=== PATIENT | male | born 1955 | race Caucasian/White ===

== ENCOUNTER 2021-04-29 17:03 | Observation (INO) | payer OTHER, SELFPAY ==
--- NOTE | ~2021-04-29 | CT_ITS ---
EXAMINATION: CT elbow RT w con DATE: 04/30/2021 11:11 INDICATION: Bursitis and cellulitis at the right elbow. TECHNIQUE: High resolution computed tomography (CT) of the right elbow was performed with 100 mL Omni paque-350 intravenous contrast. Additional sagittal and coronal reconstructions were performed. Autom ated exposure control and iterative reconstruction technique were employed. The dose-length product w as 63.20 mGy-cm. COMPARISON: Right elbow radiographs dated 04/29/2021 FINDINGS: Bone alignment is normal. No fracture. Mild osteoarthritis at the right elbow. No elbow joint effusio n. Small enthesophytes at the tip the olecranon and at the humeral medial epicondyle. No cortical ero sions or periosteal reaction to suggest osteomyelitis. There is prominent subcutaneous edema about th e posterior aspect of the distal upper arm, elbow and extending into the forearm consistent with give n history of cellulitis. This is most severe dorsal to the olecranon where there is loss of the fat a ttenuation. Could not exclude a possible small bursal fluid collection at this location although no c learly defined peripheral enhancing synovial margin is appreciated. No soft tissue gas, radiopaque fo reign bodies or other organized fluid collections to suggest abscess. IMPRESSION: 1. Soft tissue swelling and edema consistent with given history of cellulitis posterior to the distal upper arm, elbow and extending into the forearm. No definitive bursal fluid collection. Reviewed, dictated and finalized at location A. IMPRESSION: 1. Soft tissue swelling and edema consistent with given history of cellulitis p osterior to the distal upper arm, elbow and extending into the forearm. No defi nitive bursal fluid collection.
--- NOTE | ~2021-04-29 | XR_ITS ---
XR elbow RT min 3V DATE: 04/29/2021 21:51 INDICATION: Posterior elbow swelling, redness, pain for 2 weeks TECHNIQUE: 4 views COMPARISON: None FINDINGS: There is dorsal soft tissue swelling which may be due to olecranon bursitis. There is a pro minent dorsal olecranon process spur. There is osteoarthritic spurring at the elbow joint. No fracture or dislocation or joint effusion. No periosteal reaction or bone destruction. 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
--- NOTE | ~2021-04-29 | US_ITS ---
EXAMINATION: US venous doppler UE RT DATE: 04/30/2021 09:22 INDICATION: Right upper extremity swelling TECHNIQUE: Grayscale ultrasound images without and with compression and Doppler ultrasound images of the right upper extremity veins were obtained. COMPARISON: None. FINDINGS: The right internal jugular vein, subclavian vein, axillary vein, brachial veins, basilic vein, cephal ic vein, radial vein, and ulnar vein are patent. IMPRESSION: 1. No evidence of deep venous thrombosis. Reviewed, dictated and finalized at location A.
[2021-04-29 17:40] VITALS: BP 128/70; PULSE 92; RESP 20; TEMP 36.1; O2SAT 95
[2021-04-29 21:29] VITALS: BP 130/85; PULSE 90; RESP 17; O2SAT 97
[2021-04-29 22:01] LABS: Basophils Absolute Auto 0.1 K/mm3 (0.0-0.1); Basophils Percent Auto 0.6 % (0.2-1.2); Eosinophils Absolute Auto 0.2 K/mm3 (0-0.3); Eosinophils Percent Auto 1.2 % (0-4.4); Hematocrit 46.6 % (42.0-52.0); Hemoglobin 14.7 g/dL (14.0-18.0); Immature Granulocyte Absolute 0.04 K/mm3 (0.00-0.031); Immature Granulocyte Percent A 0.3 % (0-0.5); Lymphocytes Absolute Auto 1.86 K/mm3 (0.9-3.2); Lymphocytes Percent Auto 15.1 % (18.3-44.2); Mean Corpuscular HGB Conc 31.5 g/dl (32-36); Mean Corpuscular Hemoglobin 29.3 pg (26-34); Mean Platelet Volume 10.5 fl (7.4-10.4); Monocytes Absolute Auto 1.4 K/mm3 (0.1-0.6); Monocytes Percent Auto 11.1 % (2.6-8.5); Neutrophils Absolute Auto 8.8 K/mm3 (1.3-6.7); Neutrophils Percent Auto 71.7 % (45.5-73.1); Platelet Count Result 206 k/mm3 (150-375); Red Blood Count 5.01 M/mm3 (4.6-6.20); Red Cell Distribution Width 14.2 % (11.5-14.5); White Blood Count 12.3 K/mm3 (4.5-10.0)
[2021-04-29 22:12] LABS: Partial Thromboplastin Time 28.4 SECONDS (22.3-36.8)
[2021-04-29 22:13] LABS: Lactic Acid Reflex 0.7 mmol/L (0.7-2.1)
[2021-04-29 22:14] LABS: D Dimer 1.03 ug/mL (<0.48); Uric Acid 4.3 mg/dL (3.5-8.5)
[2021-04-29 22:18] LABS: Alanine Aminotransferase 20 U/L (4-50); Alkaline Phosphatase 104 U/L (38-126); Anion Gap 7 mmol/L (8-16); Aspartate Amino Transferase 17 U/L (17-59); Bilirubin,Total 0.9 mg/dL (0.2-1.3); Blood Urea Nitrogen 12 mg/dL (9-20); Carbon Dioxide 29 mmol/L (22-30); Chloride 102 mmol/L (98-107); Estimated CRCL calculation 88 ml/min; Estimated Glomerular Filt Rate > 60; Glucose 159 mg/dL (65-110); Potassium 3.9 mmol/L (3.4-5.0); Sodium 138 mmol/L (137-145)
[2021-04-29 22:34] LABS: CRP 18.6 mg/dL (<1.0)
--- NOTE | 2021-04-29 23:13 | ED.UPPEXIN ---
HPI - Extremity Injury (Upper) General Chief Complaint: Extremity Injury, Upper Stated Complaint: arm swelling, pain Time Seen by Provider: 04/29/21 21:45 Source: patient Mode of arrival: ambulatory Limitations: no limitations History of Present Illness HPI narrative: 65-year-old male History of hypertension and a stent Here with pain and swelling of his right arm He had a little bit of soreness initially around the elbow and then a rapidly progressing swelling involving the forearm and the distal upper arm There is no injury history No fever, no numbness or weakness and no restriction in his range of motion Related Data Home Medications Medication Instructions Recorded Confirmed albuterol sulfate 90 mcg/actuation 1 puff INHALATION Q4H PRN 04/14/21 04/16/21 aerosol inhaler amlodipine 5 mg tablet 5 mg PO DAILY 04/14/21 04/16/21 aspirin 81 mg tablet,delayed 81 mg PO DAILY 04/14/21 04/16/21 release carvedilol 25 mg tablet 25 mg PO Q12H 04/14/21 04/16/21 ezetimibe 10 mg tablet 10 mg PO DAILY 04/14/21 04/16/21 furosemide 40 mg tablet 40 mg PO QAM 04/14/21 04/16/21 lisinopril 40 mg tablet 40 mg PO DAILY 04/14/21 04/16/21 varenicline 0.5 mg tablet 0.5 mg PO DAILY 04/14/21 04/16/21 Allergies Allergy/AdvReac Type Severity Reaction Status Date / Time No Known Allergies Allergy Verified 04/29/21 21:31 Review of Systems Review of Systems: All systems reviewed & are unremarkable except as noted in HPI and below Constitutional: Constitutional: Reports no additional constitutional complaints, Denies chills, Denies fever(s) and Denies headache(s) Eyes: Eyes: Reports no additional eye complaints and Denies change in vision ENT: Denies headache(s) and Denies sore throat Cardiovascular: Cardiovascular: Denies chest pain and Denies dyspnea Respiratory: Respiratory: Denies cough and Denies dyspnea Gastrointestinal: Gastrointestinal: Denies abdominal pain, Denies diarrhea and Denies vomiting Genitourinary: Genitourinary: Denies dysuria and Denies urinary frequency Musculoskeletal: Musculoskeletal: Denies deformity, Reports arthralgias, Reports joint swelling, Reports muscle cramps and Denies numbness Integumentary/Breasts: Skin/Breast: Denies rash and Denies wounds Neurologic: Denies headache(s), Denies focal weakness, Denies numbness and Denies weakness Psychiatric: Psychiatric: Reports no additional psychiatric complaints Endocrine: Endocrine: Reports no additional endocrine complaints Hematologic/Lymphatic: Hematologic/Lymphatic: Reports no additional hematologic/lymphatic complaints Allergic/Immunologic: Allergic/Immunologic: Reports no additional allergic/immunologic complaints [facility] Past Medical History Medical History COPD (chronic obstructive pulmonary disease) Heart attack Heart disease Family History Family History Mother Diabetes mellitus Cancer Grandparent Diabetes mellitus Social History Social History Smoking packs per day: 0.75 Smoking cigarettes per day: 15.0 Years smoked: 55 Smoking pack-years: 41.25 Smoking status: Current every day smoker Alcohol intake: current Substance use: unknown Exam Const: General: cooperative, no acute distress and alert Orientation/consciousness: patient oriented x3 (alert) HENMT: Head: normal to inspection, normocephalic and atraumatic Ears: external ears normal General nose exam: no epistaxis Eyes: Conjunctivae: conjunctivae normal EOM: EOMs intact bilaterally Neck: Neck: normal visual inspection, supple and no JVD Resp: Effort & Inspection: normal respiratory effort and not labored Auscultation: clear to auscultation bilaterally and other (BS =) Cardio: Rate: regular rate Rhythm: regular rhythm Heart sounds: no murmurs GI: GI Palp: Yes Soft to palpation and
[2021-04-30] MEDS: LACTATED RINGERS 1,000 ML 75 ML IV CONT (00:36)
[2021-04-30] MEDS: ENOXAPARIN 120 MG/0.8 ML SYRINGE SUB-Q (00:37)
[2021-04-30 00:39] VITALS: BP 137/83; PULSE 88; RESP 20; O2SAT 96
[2021-04-30 02:00] VITALS: BP 168/77; PULSE 94; RESP 20; TEMP 36.3; O2SAT 95; BMI 42.4
--- NOTE | 2021-04-30 02:20 | PC.NURSE ---
This patient, Mil Card, was admitted to 3 [facility] Surg Room 307-02. Patient/family oriented to hospital policies and general routines including ID bracelet, bed and alarms, visiting hours, pain management, procedures, bathroom and other care routines, personal items, smoking policy, room service/diet, and visiting hours. Information on how to activate the Rapid Response Team has been discussed. Patient/Family are encouraged to report perceived risks to care and to ask questions if they do not understand what they are told or what they should do.
--- NOTE | 2021-04-30 03:38 | PC.NURSE ---
This admission was documented under the wrong nurse. Daryn Baez RN admitted this patient.
[2021-04-30] MEDS: EZETIMIBE 10 MG TABLET PO (10:10)
[2021-04-30] MEDS: ASPIRIN 81 MG ENTERIC TABLET PO (10:11)
[2021-04-30] MEDS: lisinopriL 20 MG TABLET 40 MG PO (10:11)
--- NOTE | 2021-04-30 12:39 | PM.IMHP ---
H&P: HPI History of Present Illness Date/Time: 04/30/21 12:39 patient is a 65-year-old male history of hypertension and morbid obesity presented emergency department complaint pain redness and swelling along right elbow, patient states he has callus on his right elbow for long- time, patient denies any trauma or injury to the elbow, patient has a cellulitis with an abscess, there is no open sore or drainage, we have started the patient cefazolin and vancomycin, blood culture is collected, we have consulted Orthopedic for further evaluation and recommendation. Chief Complaint: right elbow pain Review of Systems Review of Systems: All systems reviewed & are unremarkable except as noted in HPI and below PMFSH Past Medical History Medical History (Updated 04/30/21 @ 12:49 by Dominique Sylvester MD) COPD (chronic obstructive pulmonary disease) Heart attack Heart disease Family History Family History Mother Diabetes mellitus Cancer Grandparent Diabetes mellitus Social History Social History Smoking packs per day: 0.75 Smoking cigarettes per day: 15.0 Years smoked: 55 Smoking pack-years: 41.25 Smoking status: Current every day smoker Tobacco type: cigarettes Second hand tobacco smoke exposure: Yes Alcohol intake: current Drinks per week: 3 Substance use: never Substance use type: does not use Last use: drinks 3 large rashaun and coke on the weekends Spiritual care concerns: No Meds Home Medications and Allergies Home Medications Medication Instructions Recorded Confirmed Type albuterol sulfate 90 mcg/actuation 1 puff INHALATION Q4H PRN 04/14/21 04/30/21 History aerosol inhaler amlodipine 5 mg tablet 5 mg PO DAILY 04/14/21 04/30/21 History aspirin 81 mg tablet,delayed 81 mg PO DAILY 04/14/21 04/30/21 History release carvedilol 25 mg tablet 25 mg PO BID 04/14/21 04/30/21 History ezetimibe 10 mg tablet 10 mg PO DAILY 04/14/21 04/30/21 History lisinopril 40 mg tablet 40 mg PO DAILY 04/14/21 04/30/21 History Allergies Allergy/AdvReac Type Severity Reaction Status Date / Time No Known Allergies Allergy Verified 04/29/21 21:31 Vital Signs Vital Signs - 24 hr 04/29/21 17:40 04/29/21 21:29 04/30/21 00:39 Temperature 97 F L Pulse Rate 92 90 88 Respiratory Rate 20 17 20 Blood Pressure 128/70 130/85 137/83 Pulse Oximetry 95 97 96 04/30/21 02:00 Temperature 97.4 F L Pulse Rate 94 Respiratory Rate 20 Blood Pressure 168/77 H Pulse Oximetry 95 Exam Narrative: morbidly obese Patient is comfortable, NAD HEENT: eyes are clear and none icteric LUNGS:CTA HEART: RR S1S2 ABD: BS+, Soft and nontender Right Elbow posterior aspect erythematous induration, there is no open sore or any drainage, able to flex, extend, supinate and pronate. Lower extremities: no edema SKIN: nonjaundiced Neuro: grossly intact. H&P: Results Labs Labs: Short CBC 04/29/21 Range/Units 21:52 WBC 12.3 H (4.5-10.0) K/mm3 Hgb 14.7 (14.0-18.0) g/dL Hct 46.6 (42.0-52.0) % Plt Count 206 (150-375) k/mm3 BMP 04/29/21 21:52 Sodium 138 Potassium 3.9 Chloride 102 Carbon Dioxide 29 BUN 12 Creatinine 0.90 Glucose 159 H Calcium 10.0 Liver Function 04/29/21 Range/Units 21:52 Total Bilirubin 0.9 (0.2-1.3) mg/dL AST 17 (17-59) U/L ALT 20 (4-50) U/L Alkaline Phosphatase 104 (38-126) U/L Albumin 4.0 (3.5-5.1) g/dL Assessment and Plan Assessment and plan (1) Cellulitis of arm, right: Code(s): L03.113 - Cellulitis of right upper limb Status: Acute Assessment and Plan: 04/30/21 12:39 patient is a 65-year-old male history of hypertension and morbid obesity presented emergency department complaint pain redness and swelling along right elbow, patient states he has callus on his right elbow for long- time, aldo
--- NOTE | 2021-04-30 13:16 | PC.NURSE ---
patient to ultrasound 0900, returned to room at 0925
--- NOTE | 2021-04-30 13:17 | PC.NURSE ---
patient to CT at 1052
[2021-04-30 14:00] VITALS: BP 143/75; PULSE 80; RESP 16; TEMP 36.8; O2SAT 96
--- NOTE | 2021-04-30 15:27 | PM.CNOR ---
Assessment and Plan Assessment and plan (1) Olecranon bursitis: Qualifiers: Laterality: right Qualified Code(s): M70.21 - Olecranon bursitis, right elbow Code(s): M70.20 - Olecranon bursitis, unspecified elbow Status: Acute (2) Cellulitis of arm, right: Code(s): L03.113 - Cellulitis of right upper limb Status: Acute Assessment and Plan: 65-year-old male with cellulitis right elbow secondary to olecranon bursitis. CT shows no olecranon bursal fluid collection so this is thickening of the olecranon bursal tissue. He does have bilateral knee replacements so will likely need about four weeks of oral antibiotics upon discharge. Something broad-spectrum that will cover MRSA would be appropriate. If need be, I can follow-up in the office with him. Thank you for the consultation. History of Present Illness HPI Consult date: 04/30/21 Consult reason: other (Cellulitis) Chief complaint: Cellulitis right upper extremity Narrative: 65-year-old right-handed male developed some swelling and redness right upper extremity over the past couple of days. He was admitted and started on IV antibiotics for elbow cellulitis. Concern is whether not this is an abscess which would be a surgical issue. Since starting the IV antibiotics, he has improved dramatically. No problems like this in the past. Review of Systems Constitutional: Constitutional: Denies chills and Denies fever(s) FORMERLY [facility], [facility] Past Medical History Medical History (Updated 04/30/21 @ 15:35 by Bon Tam MD) COPD (chronic obstructive pulmonary disease) Heart attack Heart disease Olecranon bursitis Psoriasis Surgical History Surgical History (Updated 04/30/21 @ 15:30 by Bon Tam MD) History of total bilateral knee replacement Dr. Ray Family History Family History Mother Diabetes mellitus Cancer Grandparent Diabetes mellitus Social History Social History Smoking packs per day: 0.75 Smoking cigarettes per day: 15.0 Years smoked: 55 Smoking pack-years: 41.25 Smoking status: Current every day smoker Tobacco type: cigarettes Second hand tobacco smoke exposure: Yes Alcohol intake: current Drinks per week: 3 Substance use: never Substance use type: does not use Last use: drinks 3 large rashaun and coke on the weekends Spiritual care concerns: No Meds Home Medications and Allergies Home Medications Medication Instructions Recorded Confirmed Type albuterol sulfate 90 mcg/actuation 1 puff INHALATION Q4H PRN 04/14/21 04/30/21 History aerosol inhaler amlodipine 5 mg tablet 5 mg PO DAILY 04/14/21 04/30/21 History aspirin 81 mg tablet,delayed 81 mg PO DAILY 04/14/21 04/30/21 History release carvedilol 25 mg tablet 25 mg PO BID 04/14/21 04/30/21 History ezetimibe 10 mg tablet 10 mg PO DAILY 04/14/21 04/30/21 History lisinopril 40 mg tablet 40 mg PO DAILY 04/14/21 04/30/21 History Allergies Allergy/AdvReac Type Severity Reaction Status Date / Time No Known Allergies Allergy Verified 04/29/21 21:31 Vital Signs Vital Signs - 24 hr 04/29/21 17:40 04/29/21 21:29 04/30/21 00:39 Temperature 97 F L Pulse Rate 92 90 88 Respiratory Rate 20 17 20 Blood Pressure 128/70 130/85 137/83 Pulse Oximetry 95 97 96 04/30/21 02:00 04/30/21 14:00 Temperature 97.4 F L 98.3 F Pulse Rate 94 80 Respiratory Rate 20 16 Blood Pressure 168/77 H 143/75 H Pulse Oximetry 95 96 Exam Const: General: cooperative, no acute distress and alert Nutritional Appearance: other Orientation/consciousness: patient oriented x3 Limitations: no limitations Resp: Effort & Inspection: normal respiratory effort and able to speak in complete sentences Skin: General skin exam: normal color Rashes: no rashes Other: Psoriatic plaques both elbows Neuro: General: patient oriented x3 Cognition (N
--- NOTE | 2021-04-30 16:27 | PM.DS ---
DS: Admitting Diagnosis Discharge Date 04/30/2021 Admitting Diagnosis Chief Complaint: right elbow pain DS: Discharge Diagnosis Discharge Diagnosis (1) Cellulitis of arm, right: Code(s): L03.113 - Cellulitis of right upper limb Status: Acute Assessment and Plan: 04/30/21 12:39 patient is a 65-year-old male history of hypertension and morbid obesity presented emergency department complaint pain redness and swelling along right elbow, patient states he has callus on his right elbow for long- time, patient denies any trauma or injury to the elbow, patient has a cellulitis with an abscess, there is no open sore or drainage, we have started the patient cefazolin, and vancomycin, blood culture is collected, we have consulted Orthopedic for further evaluation and recommendation. (2) Tobacco use: Code(s): Z72.0 - Tobacco use Status: Acute Assessment and Plan: Patient Is encouraged to stop smoking (3) COPD (chronic obstructive pulmonary disease): Code(s): J44.9 - Chronic obstructive pulmonary disease, unspecified Status: Inactive Assessment and Plan: patient remains clinically stable no complaints of cough or wheezing (4) Accelerated essential hypertension: Code(s): I10 - Essential (primary) hypertension Status: Acute Assessment and Plan: will continue home regimen and monitor. DS: Summary Hospital Course Reason for hospitalization: patient is a 65-year-old male history of hypertension and morbid obesity presented emergency department complaint pain redness and swelling along right elbow, patient states he has callus on his right elbow for long- time, patient denies any trauma or injury to the elbow, patient has a cellulitis with an abscess, there is no open sore or drainage, we have started the patient cefazolin and vancomycin, blood culture is collected, we have consulted Orthopedic for further evaluation and recommendation. Chief Complaint: right elbow pain Hospital Course: 04/30/21 12:39 patient is a 65-year-old male history of hypertension and morbid obesity presented emergency department complaint pain redness and swelling along right elbow, patient states he has callus on his right elbow for long- time, patient denies any trauma or injury to the elbow, patient has a cellulitis with an abscess, there is no open sore or drainage, we have started the patient cefazolin, and vancomycin, blood culture is collected, we have consulted Orthopedic for further evaluation and recommendation. patient was seen by orthopedic surgeon, patient does not need any surgical intervention recommended or antibiotics, will start the patient on doxycycline and cephalexin patient will follow-up with orthopedic surgeon and primary care, Time Spent with Patient Time attestation: Total time spent providing and/or coordinating discharge services: Exam Narrative: morbidly obese Patient is comfortable, NAD HEENT: eyes are clear and none icteric LUNGS:CTA HEART: RR S1S2 ABD: BS+, Soft and nontender Right Elbow posterior aspect erythematous induration, there is no open sore or any drainage, able to flex, extend, supinate and pronate. Lower extremities: no edema SKIN: nonjaundiced Neuro: grossly intact. DS: Data Data Completed and Pending Labs on day of discharge: Labs from last 24 hours 04/29/21 04/29/21 04/29/21 21:52 21:52 21:52 WBC RBC Hgb Hct MCV MCH MCHC RDW Plt Count MPV Immature Gran % (Auto) Neut % (Auto) Lymph % (Auto) Casey % (Auto) Eos % (Auto) Baso % (Auto) Lymph # (Auto) Casey # (Auto) Eos # (Auto) Baso # (Auto) Abs Immat Gran (auto) Absolute Neuts (auto) Absolute Nucleated RBC Nucleated RBC % PT INR APTT D-Dimer Sodium 138 Potassium 3.9 Chloride 102 Carbon Dioxide 29 Anion Gap 7 L BUN 12 Creatinine 0.90 Estim Creat Willie
== END 2021-04-30 17:10 | disposition home or self-care (01) ==
LOC: ANHED 04-30 00:12 → ANH3MEDSUR 04-30 05:53
PROVIDERS: Emergency Medicine; Admitting Provider Internal Medicine; Emergency Provider Emergency Medicine; PCP Physician Assistant; Visit Provider Family Medicine
DX: L03.113 Cellulitis of right upper limb (principal); M70.21 Olecranon bursitis, right elbow; I10 Essential (primary) hypertension; J44.9 Chronic obstructive pulmonary disease, unspecified; E66.01 Morbid (severe) obesity due to excess calories; F17.210 Nicotine dependence, cigarettes, uncomplicated; Z68.41 Body mass index [BMI] 40.0-44.9, adult; Z96.653 Presence of artificial knee joint, bilateral; M79.89 Other specified soft tissue disorders
CPT/HCPCS: 36415; 73080; 73201; 80053; 83605; 84550; 85025; 85380; 85610; 85730; 86140; 87040; 93971; 96361; 96365; 96366; 96367; 96372; 99285; A9270; G0378; J0690; J1650; J3370; J7120; Q9967

== ENCOUNTER 2021-10-07 09:04 | Outpatient (CLI) | payer MEDICARE, SELFPAY ==
[2021-10-07 09:52] LABS: Basophils Absolute Auto 0.1 K/mm3 (0.0-0.1); Basophils Percent Auto 1.1 % (0.2-1.2); Eosinophils Absolute Auto 0.3 K/mm3 (0-0.3); Eosinophils Percent Auto 4.3 % (0-4.4); Hematocrit 49.1 % (42.0-52.0); Hemoglobin 15.4 g/dL (14.0-18.0); Immature Granulocyte Absolute 0.03 K/mm3 (0.00-0.031); Immature Granulocyte Percent A 0.4 % (0-0.5); Lymphocytes Absolute Auto 1.45 K/mm3 (0.9-3.2); Lymphocytes Percent Auto 19.3 % (18.3-44.2); Mean Corpuscular HGB Conc 31.4 g/dl (32-36); Mean Corpuscular Hemoglobin 28.3 pg (26-34); Mean Corpuscular Volume 90.1 fl (80-100); Mean Platelet Volume 10.2 fl (7.4-10.4); Monocytes Absolute Auto 0.7 K/mm3 (0.1-0.6); Monocytes Percent Auto 9.3 % (2.6-8.5); Neutrophils Absolute Auto 4.9 K/mm3 (1.3-6.7); Neutrophils Percent Auto 65.6 % (45.5-73.1); Platelet Count Result 184 k/mm3 (150-375); Red Blood Count 5.45 M/mm3 (4.6-6.20); Red Cell Distribution Width 14.6 % (11.5-14.5); White Blood Count 7.5 K/mm3 (4.5-10.0)
[2021-10-07 09:59] LABS: Alanine Aminotransferase 27 U/L (4-50); Albumin Level 3.9 g/dL (3.5-5.1); Alkaline Phosphatase 95 U/L (38-126); Anion Gap 4 mmol/L (8-16); Aspartate Amino Transferase 21 U/L (17-59); Bilirubin,Total 0.5 mg/dL (0.2-1.3); Blood Urea Nitrogen 14 mg/dL (9-20); Calcium 9.5 mg/dL (8.4-10.2); Carbon Dioxide 33 mmol/L (22-30); Chloride 102 mmol/L (98-107); Cholesterol 159 mg/dL (0-200); Estimated Glomerular Filt Rate > 60; Glucose 194 mg/dL (65-110); HDL Direct 41 mg/dL; Potassium 4.8 mmol/L (3.4-5.0); Sodium 139 mmol/L (137-145); Triglycerides 140 mg/dL (<150)
[2021-10-07 10:09] LABS: LDL Cholesterol Direct 100 mg/dL
[2021-10-07 13:48] LABS: Prostate Specific Antigen 0.8 ng/mL (< OR = 4.0)
[2021-10-07 14:27] LABS: Folic Acid 9.4 ng/mL (2.76->20)
[2021-10-08 13:27] LABS: Hemoglobin A1C 8.1 % (<5.7)
[2021-10-09 13:04] LABS: Alpha-1-Antitrypsin, QN 150 mg/dL (83-199)
[2021-10-09 15:36] LABS: NIL 0.03 IU/mL; Quantiferon TB Plus, 1T NEGATIVE (NEGATIVE); TB1-NIL <0.00 IU/mL; TB2-NIL <0.00 IU/mL
[2021-10-10 16:53] LABS: Immunoglobulin G, Serum 887 mg/dL (600-1540); Immunoglobulin G1 505 mg/dL (382-929); Immunoglobulin G2 264 mg/dL (241-700); Immunoglobulin G3 78 mg/dL (22-178); Immunoglobulin G4 24.9 mg/dL (4.0-86.0)
== END 2021-10-07 09:05 | disposition home or self-care (01) ==
PROVIDERS: PCP Internal Medicine; Referring Provider Nurse Practitioner; Visit Provider Physician Assistant
DX: E78.5 Hyperlipidemia, unspecified (principal); E11.9 Type 2 diabetes mellitus without complications; J44.9 Chronic obstructive pulmonary disease, unspecified; R53.83 Other fatigue; Z12.5 Encounter for screening for malignant neoplasm of prostate; R06.09 Other forms of dyspnea
CPT/HCPCS: 36415; 80053; 80061; 82103; 82104; 82607; 82746; 82784; 82785; 82787; 83036; 84153; 84443; 85025; 86003; 86480; G0103

== ENCOUNTER 2022-01-06 09:54 | Outpatient (CLI) | payer MEDICARE, SELFPAY ==
[2022-01-06 11:25] LABS: Hemoglobin A1C 6.5 % (<5.7)
[2022-01-06 11:40] LABS: Alanine Aminotransferase 15 U/L (6-50); Albumin Level 4.1 g/dL (3.5-5.1); Alkaline Phosphatase 86 U/L (38-126); Anion Gap 4 mmol/L (8-16); Aspartate Amino Transferase 18 U/L (17-59); Bilirubin,Total 0.6 mg/dL (0.2-1.3); Blood Urea Nitrogen 11 mg/dL (9-20); Calcium 9.2 mg/dL (8.4-10.2); Carbon Dioxide 29 mmol/L (22-30); Chloride 105 mmol/L (98-107); Estimated Glomerular Filt Rate > 60; Glucose 129 mg/dL (65-110); Potassium 3.9 mmol/L (3.4-5.0); Sodium 138 mmol/L (137-145)
== END 2022-01-06 09:55 | disposition home or self-care (01) ==
LOC: ANHLAB 09:56
PROVIDERS: PCP Internal Medicine; Visit Provider Physician Assistant
DX: E11.9 Type 2 diabetes mellitus without complications (principal)
CPT/HCPCS: 36415; 80053; 83036

== ENCOUNTER 2022-05-03 08:37 | Outpatient (CLI) | payer MEDICARE, SELFPAY ==
[2022-05-03 09:15] LABS: Alanine Aminotransferase 18 U/L (6-50); Albumin Level 3.9 g/dL (3.5-5.1); Alkaline Phosphatase 76 U/L (38-126); Anion Gap 7 mmol/L (8-16); Aspartate Amino Transferase 17 U/L (17-59); Bilirubin,Total 0.5 mg/dL (0.2-1.3); Blood Urea Nitrogen 14 mg/dL (9-20); Calcium 9.7 mg/dL (8.4-10.2); Carbon Dioxide 30 mmol/L (22-30); Chloride 102 mmol/L (98-107); Cholesterol 179 mg/dL (0-200); Estimated Glomerular Filt Rate > 60; Glucose 125 mg/dL (65-110); HDL Direct 42 mg/dL; Potassium 4.3 mmol/L (3.4-5.0); Sodium 139 mmol/L (137-145); Triglycerides 130 mg/dL (<150)
[2022-05-03 09:26] LABS: LDL Cholesterol Direct 112 mg/dL
[2022-05-03 10:15] LABS: Creatinine Urine 47.5 mg/dL
[2022-05-03 10:18] LABS: MALB Creatinine Ratio 42.5 mg/g (0-30); Microalbumin Urine Random 20.2 mg/L (0-16.7)
[2022-05-03 13:14] LABS: Hemoglobin A1C 6.1 % (<5.7)
== END 2022-05-03 08:38 | disposition home or self-care (01) ==
LOC: ANHLAB 08:42
PROVIDERS: PCP Physician Assistant; Visit Provider Podiatrist Foot & Ankle Surgery
DX: E11.9 Type 2 diabetes mellitus without complications (principal); B35.1 Tinea unguium
CPT/HCPCS: 36415; 80053; 80061; 82043; 83036

== ENCOUNTER 2023-01-02 09:00 | Outpatient (CLI) | payer MEDICARE, SELFPAY ==
[2023-01-02 09:45] LABS: Basophils Absolute Auto 0.1 K/mm3 (0.0-0.1); Basophils Percent Auto 0.9 % (0.2-1.2); Eosinophils Absolute Auto 0.3 K/mm3 (0-0.3); Eosinophils Percent Auto 3.3 % (0-4.4); Hematocrit 48.9 % (42.0-52.0); Hemoglobin 15.1 g/dL (14.0-18.0); Immature Granulocyte Absolute 0.04 K/mm3 (0.00-0.031); Immature Granulocyte Percent A 0.4 % (0-0.5); Lymphocytes Absolute Auto 1.42 K/mm3 (0.9-3.2); Lymphocytes Percent Auto 15.6 % (18.3-44.2); Mean Corpuscular HGB Conc 30.9 g/dl (32-36); Mean Corpuscular Hemoglobin 27.1 pg (26-34); Mean Corpuscular Volume 87.6 fl (80-100); Mean Platelet Volume 10.3 fl (7.4-10.4); Monocytes Absolute Auto 0.8 K/mm3 (0.1-0.6); Monocytes Percent Auto 8.6 % (2.6-8.5); Neutrophils Absolute Auto 6.5 K/mm3 (1.3-6.7); Neutrophils Percent Auto 71.2 % (45.5-73.1); Platelet Count Result 206 k/mm3 (150-375); Red Blood Count 5.58 M/mm3 (4.6-6.20); Red Cell Distribution Width 15.2 % (11.5-14.5); White Blood Count 9.1 K/mm3 (4.5-10.0)
[2023-01-02 10:01] LABS: Alanine Aminotransferase 19 U/L (6-50); Alkaline Phosphatase 82 U/L (38-126); Anion Gap 5 mmol/L (8-16); Aspartate Amino Transferase 18 U/L (17-59); Bilirubin,Total 0.9 mg/dL (0.2-1.3); Blood Urea Nitrogen 14 mg/dL (9-20); Calcium 9.3 mg/dL (8.4-10.2); Carbon Dioxide 33 mmol/L (22-30); Chloride 100 mmol/L (98-107); Cholesterol 181 mg/dL (0-200); Estimated Glomerular Filt Rate > 60; Glucose 144 mg/dL (65-110); HDL Direct 40 mg/dL; Potassium 4.2 mmol/L (3.4-5.0); Sodium 138 mmol/L (137-145); Triglycerides 120 mg/dL (<150)
[2023-01-02 10:07] LABS: Hemoglobin A1C 6.9 % (<5.7)
[2023-01-02 10:15] LABS: LDL Cholesterol Direct 125 mg/dL
[2023-01-02 10:32] LABS: Prostate Specific Antigen 2.2 ng/mL (< OR = 4.0)
[2023-01-02 11:08] LABS: Folic Acid 10.2 ng/mL (2.76->20)
== END 2023-01-02 09:01 | disposition home or self-care (01) ==
PROVIDERS: PCP Physician Assistant; Visit Provider Physician Assistant
DX: R53.83 Other fatigue (principal); E11.9 Type 2 diabetes mellitus without complications; Z12.5 Encounter for screening for malignant neoplasm of prostate
CPT/HCPCS: 36415; 80053; 80061; 82607; 82746; 83036; 84153; 84443; 85025; G0103

== ENCOUNTER 2023-07-12 09:16 | Outpatient (CLI) | payer MEDICARE, SELFPAY ==
[2023-07-12 09:55] LABS: Alanine Aminotransferase 18 U/L (6-50); Alkaline Phosphatase 79 U/L (38-126); Anion Gap 7 mmol/L (8-16); Aspartate Amino Transferase 24 U/L (17-59); Bilirubin,Total 0.9 mg/dL (0.2-1.3); Blood Urea Nitrogen 15 mg/dL (9-20); Calcium 9.7 mg/dL (8.4-10.2); Carbon Dioxide 30 mmol/L (22-30); Chloride 100 mmol/L (98-107); Estimated Glomerular Filt Rate > 60; Glucose 137 mg/dL (65-110); Potassium 4.2 mmol/L (3.4-5.0); Sodium 137 mmol/L (137-145)
[2023-07-12 10:01] LABS: Hemoglobin A1C 6.2 % (<5.7)
== END 2023-07-12 09:17 | disposition home or self-care (01) ==
LOC: ANHLAB 09:20
PROVIDERS: PCP Physician Assistant; Visit Provider Physician Assistant
DX: E11.9 Type 2 diabetes mellitus without complications (principal)
CPT/HCPCS: 36415; 80053; 83036

== ENCOUNTER 2023-11-16 11:18 | Inpatient (IN) | payer MEDICARE, SELFPAY ==
[2023-11-16] VITALS (21 sets, daily range): BP systolic 97–156; BP diastolic 56–78; PULSE 69–100; RESP 14–40; TEMP 36.6–37.4; O2SAT 87–99; BMI 35.4
--- NOTE | ~2023-11-16 | XR_ITS ---
EXAMINATION: XR chest 1V portable Exam Date/Time: 11/19/2023 9:30 CDT HISTORY: chf Comparison: 11/18/2023; CT cap 11/16/2023. RESULT: Lines, tubes, and devices: None. Lungs and pleura: Mild diffuse reticular opacities. Subsegmental left medial basal and segmental rig ht basilar airspace disease. Mild costophrenic angle blunting. Cardiomediastinal silhouette: Stable. Other: No acute osseous or upper abdominal finding. IMPRESSION: Senescent change versus interstitial edema. Bibasilar atelectasis/consolidation. Possible small bilat eral pleural effusions. Reviewed, dictated and finalized at location [facility]. IMPRESSION: Senescent change versus interstitial edema. Bibasilar atelectasis/consolidation . Possible small bilateral pleural effusions.
--- NOTE | ~2023-11-16 | XR_ITS ---
Portable chest x-ray Comparison: None Clinical History: Weakness Findings: Small amount of fluid present in right minor fissure. Mild diffuse interstitial prominence is present, with central congestive change Cardiomediastinal silhouette is mildly prominent, nonspe cific. Bones and soft tissues are unremarkable. Impression: Probable central congestive change and mild interstitial edema. Minimal right pleural effusion. Reviewed, dictated and finalized at [facility]. Impression: Probable central congestive change and mild interstitial edema. Minimal right pleural effusion.
--- NOTE | ~2023-11-16 | CT_ITS ---
EXAMINATION: CT brain wo con DATE: 11/16/2023 16:10 INDICATION: Altered mental state TECHNIQUE: Computed tomography (CT) of the head was performed without intravenous contrast. The mA wa s adjusted according to patient size. Iterative reconstruction technique was employed. Exam dose: 68 1.00 mGy-cm total exam DLP. COMPARISON: None FINDINGS: Mild motion streak artifact is noted. Bilateral carotid siphon internal carotid artery and right vertebral and basilar artery calcification s. There is nonspecific diminished attenuation of the cerebral white matter, likely due to chronic small vessel ischemic changes. No intracranial mass lesion or hemorrhage or cerebrovascular accident, midline shift or mass effect i s evident. No subdural or epidural hematoma. There is very prominent mucoperiosteal thickening of the right maxillary sinus. Mild patchy soft tiss ue thickening of the ethmoid air cells is noted bilaterally. The remaining paranasal sinuses and the mastoid air cells are normally developed and aerated. No fracture or bone destruction of the cranial vault. IMPRESSION: Cerebral atherosclerosis and chronic small vessel ischemic changes of the cerebral white matter No acute intracranial finding Prominent right maxillary and mild bilateral ethmoid periosteal soft tissue thickening Reviewed, dictated and finalized at [facility]. Reviewed, dictated and finalized at location B. IMPRESSION: Cerebral atherosclerosis and chronic small vessel ischemic changes of the cerebral white matter No acute intracranial finding Prominent right maxillary and mild bilateral ethmoid periosteal soft tissue thi ckening
--- NOTE | ~2023-11-16 | XR_ITS ---
EXAMINATION: XR barium swallow modified DATE: 11/20/2023 14:42 INDICATION: Aspiration. TECHNIQUE: The patient was given barium-containing material of multiple consistencies to swallow by t he speech pathologist while I performed fluoroscopy. Fluoroscopy exposure time was 1.5 minutes. The n umber of fluoroscopy images saved to the PACS was 1. Dose-area product was 1.677 Gy-cm^2. FINDINGS: The oral stage, pharyngeal stage, and cervical/esophageal stage of the swallow are normal. IMPRESSION: 1. Normal modified barium swallow. 2. Please refer to the speech therapy report for recommendations. Reviewed, dictated and finalized at location [facility].
--- NOTE | ~2023-11-16 | XR_ITS ---
XR chest 1V portable DATE: 11/18/2023 05:32 INDICATION: Pneumonia TECHNIQUE: Portable AP chest November 18, 2023 and sonography is COMPARISON: November 16, 2023 CT chest abdomen pelvis November 16, 2023 portable AP chest FINDINGS: Prominent bilateral lower lobe infiltrates and/atelectasis in the right and left. Cardiomegaly. Pulmonary vascular congestion and redistribution. Probable bilateral pleural effusions. Prominence of minor fissure, consistent with subpleural edema. Aortic arch calcification. Osteopenia. IMPRESSION: Bilateral predominantly lower lobe, right greater than left, increased since 11/16/2023 Cardiomegaly, pulmonary vascular congestion, subpleural edema, consistent with CHF Reviewed, dictated and finalized at location [facility]. IMPRESSION: Bilateral predominantly lower lobe, right greater than left, increa sed since 11/16/2023 Cardiomegaly, pulmonary vascular congestion, subpleural edema, consistent with CHF
--- NOTE | ~2023-11-16 | CT_ITS ---
EXAMINATION: CT chest abdomen pelvis wo con DATE: 11/16/2023 16:10 INDICATION: Altered mental status. TECHNIQUE: Computed tomography (CT) of the chest, abdomen, and pelvis was performed without intraveno us contrast. Automated exposure control and iterative reconstruction technique were employed. The dos e-length product was 1846.04 mGy-cm. COMPARISON: None FINDINGS: CHEST CT: The lungs demonstrate atelectasis, worst in the lower lobes. There are centrilobular nodules in right upper lobe, consistent with mild pneumonia. No pleural effusion. Cardiomegaly is noted. There are co ronary artery calcifications. No pericardial effusion. There is severe cervical spondylosis and moder ate thoracic spondylosis. ABDOMEN/PELVIS CT: There is a 3.8 cm cyst in the liver. The gallbladder is contracted. The spleen, pancreas, and adrenal glands are normal. There is moderate atrophy of right kidney. There are 2 mm and 8 mm stones in left kidney. There is a 6.5 cm fusiform in infrarenal aortic aneurysm. The prostate is mildly enlarged. T here is diverticulosis of the colon without evidence of diverticulitis. The appendix is normal. There are no pathologically enlarged lymph nodes. There is no free intraperitoneal fluid. There is moderat e lumbar spondylosis. IMPRESSION: 1. 6.5 cm fusiform aneurysm of infrarenal aorta. Surgical evaluation is recommended. 2. Mild right upper lobe pneumonia. Reviewed, dictated and finalized at location [facility]. IMPRESSION: 1. 6.5 cm fusiform aneurysm of infrarenal aorta. Surgical evaluation is recomme nded. 2. Mild right upper lobe pneumonia.
--- NOTE | 2023-11-16 11:28 | ECG_ITS ---
Measurements Intervals [place] Rate: 92 P: -64 [place]: 142 QRS: 25 QRSD: 89 T: 65 QT: 326 QTc: 404 Interpretive Statements SINUS RHYTHM WITH OCCASIONAL VENTRICULAR PREMATURE COMPLEXES BASELINE ARTIFACT NO PREVIOUS ECG AVAILABLE FOR COMPARISON Electronically Signed On 11-16-2023 12:56:16 CDT by Francisco Aguila M.D.
[2023-11-16 11:56] LABS: Alveolar/Arterial O2 Gradient 51.6 mmHg; Base Excess ABG 5.4 mEq/l (+/-2.0); Carboxyhemoglobin 5.2 % THb (0-2.0); Fractional Inspired Oxygen 32 %; HCO3 ABG 37.7 mEq/l (22.0-26.0); Methemoglobin ABG 0.2 %THb (0-1.5); Oxygen Content ABG 18.2 %vol (16.0-22.0); PO2 ABG 60.6 mmHg (80.0-100.0); PO2 FiO2 Ratio Arterial Blood 1.89 %; Total Hemoglobin 15.5 g/dL (12.0-18.0)
[2023-11-16 11:58] LABS: pH ABG 7.198 (7.350-7.450)
[2023-11-16 11:59] LABS: Modified Allen's Test Pass; Oxygen Saturation ABG 83.6 % (95.0-100.0); Oxyhemoglobin 83.6 % THb (90.0-100.0); PCO2 ABG 99.1 mmHg (35.0-45.0); Site Drawn RIGHT RADIAL
[2023-11-16 12:00] LABS: Device NASAL CANNULA
[2023-11-16 12:06] LABS: Basophils Absolute Auto 0.1 K/mm3 (0.0-0.1); Basophils Percent Auto 0.4 % (0.2-1.2); Eosinophils Absolute Auto 0.1 K/mm3 (0-0.3); Eosinophils Percent Auto 0.8 % (0-4.4); Hematocrit 48.8 % (42.0-52.0); Hemoglobin 14.7 g/dL (14.0-18.0); Immature Granulocyte Absolute 0.08 K/mm3 (0.00-0.031); Immature Granulocyte Percent A 0.7 % (0-0.5); Lymphocytes Absolute Auto 0.74 K/mm3 (0.9-3.2); Lymphocytes Percent Auto 6.2 % (18.3-44.2); Mean Corpuscular HGB Conc 30.1 g/dl (32-36); Mean Corpuscular Hemoglobin 27.4 pg (26-34); Mean Corpuscular Volume 90.9 fl (80-100); Mean Platelet Volume 10.2 fl (7.4-10.4); Monocytes Absolute Auto 0.9 K/mm3 (0.1-0.6); Monocytes Percent Auto 7.3 % (2.6-8.5); Neutrophils Absolute Auto 10.1 K/mm3 (1.3-6.7); Neutrophils Percent Auto 84.6 % (45.5-73.1); Platelet Count Result 202 k/mm3 (150-375); Red Blood Count 5.37 M/mm3 (4.6-6.20); Red Cell Distribution Width 14.1 % (11.5-14.5)
[2023-11-16 12:15] LABS: Alanine Aminotransferase 13 U/L (6-50); Albumin Level 3.9 g/dL (3.5-5.1); Alkaline Phosphatase 89 U/L (38-126); Anion Gap 1 mmol/L (4-12); Aspartate Amino Transferase 18 U/L (17-59); Bilirubin,Total 0.7 mg/dL (0.2-1.3); Blood Urea Nitrogen 17 mg/dL (9-20); Calcium 9.8 mg/dL (8.4-10.2); Carbon Dioxide 39 mmol/L (22-30); Chloride 89 mmol/L (98-107); Estimated CRCL calculation 99 ml/min; Estimated Glomerular Filt Rate > 60; Glucose 135 mg/dL (65-110); Potassium 4.5 mmol/L (3.4-5.0); Sodium 129 mmol/L (137-145)
--- NOTE | 2023-11-16 13:07 | ED.GENADULT ---
HPI - General Adult General Chief complaint: Weakness Stated complaint: increased weakness/SOB x 1 week Time Seen by Provider: 11/16/23 11:34 History of Present Illness HPI narrative: Patient is a 68-year-old male who presents ER from home with increased weakness/ shortness of breath/ confusion worsening over the last week. Patient was recently started on home oxygen in last week as well. Patient wheezing. He is sleeping but with minor stimuli he awakens and is alert orient x3. He endorses being tired but has no other complaints. He reports he is a DNR and I have discussed worsening respiratory status and he states that he is to not be intubated under any circumstance and he understands he could . Related Data Home Medications Medication Instructions Recorded Confirmed albuterol sulfate 90 mcg/actuation 1 puff inhalation Q4H PRN SOB 04/14/21 08/16/23 aerosol inhaler amlodipine 5 mg tablet 5 mg PO DAILY 04/14/21 08/16/23 aspirin 81 mg tablet,delayed 81 mg PO DAILY 04/14/21 08/16/23 release carvedilol 25 mg tablet 25 mg PO BID 04/14/21 08/16/23 ezetimibe 10 mg tablet (Zetia) 10 mg PO DAILY 04/14/21 08/16/23 lisinopril 40 mg tablet 40 mg PO DAILY 04/14/21 08/16/23 Allergies Allergy/AdvReac Type Severity Reaction Status Date / Time No Known Allergies Allergy Verified 08/16/23 10:42 Review of Systems Review of Systems: All systems reviewed & are unremarkable except as noted in HPI and below Constitutional: Constitutional: Denies chills, Reports fatigue, Denies fever(s) and Reports weakness ENT: Reports system reviewed and no additional complaints, except as documented Cardiovascular: Cardiovascular: Reports no additional cardiovascular complaints Respiratory: Respiratory: Denies cough, Reports dyspnea and Reports wheezing Gastrointestinal: Gastrointestinal: Reports no additional gastrointestinal complaints Genitourinary: Genitourinary: Reports no additional male genitourinary complaints [facility] Past Medical History Medical History COPD (chronic obstructive pulmonary disease) Heart attack Heart disease Olecranon bursitis Psoriasis Surgical History Surgical History History of total bilateral knee replacement Dr. Ray Family History Family History Mother Diabetes mellitus Cancer Grandparent Diabetes mellitus Social History Social History Smoking packs per day: 0.75 Smoking cigarettes per day: 15.0 Years smoked: 55 Smoking pack-years: 41.25 Smoking status: Current every day smoker Tobacco type: cigarettes Second hand tobacco smoke exposure: Yes Alcohol intake: current Drinks per week: 3 Substance use: never Substance use type: does not use Last use: drinks 3 large rashaun and coke on the weekends Current Housing: Decline to Answer Concerned About Future Housing: Decline to Answer Difficulty Paying Gas/Electric Bills: Decline to Answer Difficulty Paying for Meds: Decline to Answer Currently Unemployed: Decline to Answer Education: Decline to Answer Difficulty w/ Childcare or Family Care: Decline to Answer Living arrangements: with family Gender identity (if verbalized by the patient): Male Spiritual care concerns: No Exam Narrative: GENERAL: Fatigued-appearing, well-nourished, and in no acute distress HEAD: Normocephalic, atraumatic. EYES: PERRL and EOMI. ENT: Mucous membranes moist. CHEST: Diffuse expiratory wheezing. No respiratory distress. HEART: Regular rate and rhythm. Normal peripheral pulses. ABDOMEN: Soft, nontender, nondistended. EXTREMITIES: Normal range of motion. No edema. SKIN: Warm, dry, no rash. NEURO: Alert and oriented x3. PSYCH: Normal mood and affect. Course Course Emergency Course:
[2023-11-16 13:29] LABS: NT Pro B Type Natriuretic Pept 320 pg/mL (19.9-100)
[2023-11-16 13:31] LABS: Appearance Urine Clear (Clear); Bilirubin Urine Negative (Negative); Blood Urine Negative (Negative); Color Urine Yellow (Yellow); Glucose Urine UA Negative (Negative); Ketones Urine 2+ mg/dL (Negative); Leukocyte Esterase Ur Negative LEU/UL (Negative); Nitrate Urine Negative (Negative); Protein Urine 2+ mg/dL (Negative); Specific Grav Ur 1.029 (1.001-1.035); pH Urine 5.5 (5.0-9.0)
[2023-11-16 13:32] LABS: Add Urine Microscopic? YES
[2023-11-16 13:56] LABS: Squamous Epithelial Cell Urine Rare /hpf (Few); WBC Urine 0-5 /hpf (0-3)
[2023-11-16 13:57] LABS: Hyaline Casts Urine Present /lpf; Mucus Urine Few /lpf; Transitional Epi Cells Urine Rare /hpf
[2023-11-16] MEDS: methylPREDNISolone SOD SUCC 125 MG VIAL IV PUSH (14:00)
[2023-11-16] MEDS: ALBUTEROL SULFATE NEB 2.5 MG/3 ML INH 15 MG INHALATION (14:04)
[2023-11-16] MEDS: IPRATROPIUM BR 0.02% INH SOLN 0.5 MG/2.5 ML VIAL 1.5 MG INHALATION (14:05)
--- NOTE | 2023-11-16 14:08 | PM.IMHP ---
H&P: HPI History of Present Illness Date/Time: 11/16/23 14:08 Chief Complaint: Weakness Narrative: 68 y/o M presents here with weakness and lethargy with PMH of COPD, heart disease, [place], and psoriasis. Patient presented here from home via EMS for further evaluation of weakness, shortness of breath, confusion, and lethargy. Patient arrived to the inpatient floor obtunded. Spoke with family for history. They reported that patient was given supplemental O2 on Monday by the fire department which ran out. Patient was not on supplemental O2 for approximately a day. Was able to receive an order for supplemental O2 through his provider (family believes it was his supply room clerk). They are unsure how much O2 he is supposed to be on and if it is continuous or only at night. They report patient had visual hallucinations yesterday, was too weak to hold himself up, and had drooling. Confusion seemed to resolve with reinitiation of O2, per family they did not note any confusion this morning. Patient did have ground level fall last night around 10 pm and complained of some low back pain, otherwise no complaints to family. EMS called today due to the increased. Found smoking with O2 in place upon EMS arrival. Arrived with audible wheezing and somnolent but awakened easily to voice. Currently not responding to noxious stimuli and muscle tone is flaccid in all extremities. Unable to obtain further history due to patient's current condition. Initial VS at presentation: 99.3? F, HR 92, RR 40, 155/78, and 94% on 3L NC. Now on BiPAP. ED workup showed: WBC 12, no anemia, CO2 39, glucose 135, creatinine 0.7, BNP 320, and UA showed 2+ protein, 2+ ketones, 3-5 RBCs, and few mucus. CXR probable central congestive change and mild interstitial edema and minimal right pleural effusion. Initial ABG showed: pH 7.198, pCO2 99.1, pO2 60.6, HCO3 37.7, O2 sat 83.6%. Review of Systems Review of Systems: ROS unobtainable: Yes unobtainable due to mental status PMFSH Past Medical History Medical History BPH (benign prostatic hyperplasia) COPD (chronic obstructive pulmonary disease) Heart attack Heart disease Herpes zoster HTN (hypertension) Hyperlipidemia Morbid obesity with BMI of 40.0-44.9, adult Olecranon bursitis Psoriasis Tobacco use Surgical History Surgical History History of total bilateral knee replacement Dr. Ray Family History Family History Mother Diabetes mellitus Cancer Grandparent Diabetes mellitus Social History Social History Smoking packs per day: 0.75 Smoking cigarettes per day: 15.0 Years smoked: 55 Smoking pack-years: 41.25 Smoking status: Current every day smoker Second hand tobacco smoke exposure: Yes Alcohol intake: current Drinks per week: 3 Substance use: never Substance use type: does not use Last use: drinks 3 large rashaun and coke on the weekends Current Housing: Decline to Answer Concerned About Future Housing: Decline to Answer Difficulty Paying Gas/Electric Bills: Decline to Answer Difficulty Paying for Meds: Decline to Answer Currently Unemployed: Decline to Answer Education: Decline to Answer Difficulty w/ Childcare or Family Care: Decline to Answer Living arrangements: with family Gender identity (if verbalized by the patient): Male Spiritual care concerns: No Meds Home Medications and Allergies Home Medications Medication Instructions Recorded Confirmed Type amlodipine 5 mg tablet 5 mg PO DAILY 04/14/21 11/16/23 History aspirin 81 mg tablet,delayed 81 mg PO DAILY 04/14/21 11/16/23 History release carvedilol 25 mg tablet 25 mg PO BID 04/14/21 11/16/23 History ezetimibe 10 mg tablet (Zetia) 10 mg PO DAILY 04/14/21 11/16/23 History lisinopril 40 mg tablet 40 mg PO DAILY 04/14/21 11/16/23 History bl
[2023-11-16 15:20] LABS: Creatine Kinase 71 U/L (55-170)
[2023-11-16 15:39] LABS: Alveolar/Arterial O2 Gradient 148.7 mmHg; Base Excess ABG 5.9 mEq/l (+/-2.0); Fractional Inspired Oxygen 50 %; HCO3 ABG 39.8 mEq/l (22.0-26.0); Oxygen Content ABG 19.2 %vol (16.0-22.0); Oxygen Saturation ABG 89.1 % (95.0-100.0); Oxyhemoglobin 89.2 % THb (90.0-100.0); PO2 ABG 75.2 mmHg (80.0-100.0); Total Hemoglobin 15.3 g/dL (12.0-18.0)
--- NOTE | 2023-11-16 15:39 | PC.NURSE ---
patient arrived to floor unresponsive, Divya Lynn NP called to bedside to evaluate patient
[2023-11-16 15:45] LABS: Device BIPAP; Modified Allen's Test Pass; PCO2 ABG 117.9 mmHg (35.0-45.0); Site Drawn LEFT BRACHIAL; pH ABG 7.146 (7.350-7.450)
[2023-11-16 15:52] LABS: Expiratory Pressure 8 cmH2O; Inspiratory Pressure 18 cmH2O
[2023-11-16 17:02] LABS: Influenza A QL RT-PCR Negative (Negative); Influenza B QL RT-PCR Negative (Negative); RSV RNA, RT-PCR Negative (Negative); SARS-CoV-2 RNA PCR Negative (Negative)
--- NOTE | 2023-11-16 17:04 | PC.NURSE ---
This patient, Mil Card, was transferred to [ICU ] on 11/16/23 at 1704. Personal belongings sent with patient. Report given to [HALLIE Gifford]. Appropriate documentation sent with patient.
--- NOTE | 2023-11-16 17:28 | ADMGEN ---
This patient, Mil Card, was admitted to Intensive Care Unit-9. Patient/family oriented to hospital policies and general routines including ID bracelet, bed and alarms, visiting hours, pain management, procedures, bathroom and other care routines, personal items, smoking policy, room service/diet, and visiting hours. Information on how to activate the Rapid Response Team has been discussed. Patient/Family are encouraged to report perceived risks to care and to ask questions if they do not understand what they are told or what they should do.
[2023-11-16 17:29] LABS: Alveolar/Arterial O2 Gradient 245.7 mmHg; Base Excess ABG 1.1 mEq/l (+/-2.0); Fractional Inspired Oxygen 60 %; HCO3 ABG 33.8 mEq/l (22.0-26.0); Oxygen Content ABG 19.4 %vol (16.0-22.0); Oxygen Saturation ABG 88.3 % (95.0-100.0); Oxyhemoglobin 89.2 % THb (90.0-100.0); PO2 ABG 72.2 mmHg (80.0-100.0); Total Hemoglobin 15.5 g/dL (12.0-18.0)
[2023-11-16 17:31] LABS: pH ABG 7.147 (7.350-7.450)
[2023-11-16 17:32] LABS: Device NON-INVASIVE VENT; PCO2 ABG 99.9 mmHg (35.0-45.0); Site Drawn LEFT BRACHIAL
[2023-11-16 17:33] LABS: Non-Invasive Expiratory Pressure 8 CMH2O; Non-Invasive Vent Rate 24 /MIN
[2023-11-16 17:53] LABS: Amphetamine Screen Urine Negative (Negative); Barbiturate Screen Urine Negative (Negative); Benzodiazepines Screen Urine Negative (Negative); Cannabinoid Screen Urine Negative (Negative); Cocaine Screen Urine Negative (Negative); Methadone Screen Urine Negative (Negative); Opiate Screen Urine Negative (Negative); Phencyclidine Screen Urine Negative (Negative)
[2023-11-16] MEDS: methylPREDNISolone SOD SUCC 125 MG VIAL 60 MG IV PUSH (18:06)
[2023-11-16] MEDS: CEFEPIME 2 GM/NS 50 ML 2 GM/50 ML BAG IVPB (18:06)
[2023-11-16] MEDS: LACTATED RINGERS 1,000 ML 100 ML IV CONT (18:06)
[2023-11-16] MEDS: FUROSEMIDE INJ 40 MG/4 ML VIAL IV PUSH (18:07)
[2023-11-16 18:37] LABS: Thyroid Stimulating Hormone Reflex 0.581 uIU/mL (0.465-4.68)
[2023-11-16] MEDS: VANCOMYCIN 1,250 MG/NS 250 ML 1,250 MG/250 ML BAG 166.67 MG IVPB (18:47)
[2023-11-16 18:48] LABS: Glucose Point of Care 146 mg/dl (65-105)
[2023-11-16] MEDS: IPRATROPIUM 0.5 MG/ALBUTEROL SULFATE 2.5 MG AMPUL.NEB 3 ML INHALATION (20:28)
[2023-11-16 20:50] LABS: Glucose Point of Care 150 mg/dl (65-105)
[2023-11-16 22:06] LABS: Lactic Acid Reflex 0.8 mmol/L (0.7-2.0)
[2023-11-16 23:50] LABS: Alveolar/Arterial O2 Gradient 219.6 mmHg; Base Excess ABG 2.7 mEq/l (+/-2.0); Fractional Inspired Oxygen 60 %; HCO3 ABG 31.6 mEq/l (22.0-26.0); Oxygen Content ABG 20.9 %vol (16.0-22.0); Oxygen Saturation ABG 98.2 % (95.0-100.0); Oxyhemoglobin 95.9 % THb (90.0-100.0); PO2 ABG 133.3 mmHg (80.0-100.0); PO2 FiO2 Ratio Arterial Blood 2.22 %; Total Hemoglobin 15.4 g/dL (12.0-18.0)
[2023-11-16 23:53] LABS: Device OTHER DEVICE; Modified Allen's Test Pass; PCO2 ABG 68.1 mmHg (35.0-45.0); Site Drawn RIGHT RADIAL; pH ABG 7.285 (7.350-7.450)
[2023-11-17] VITALS (30 sets, daily range): BP systolic 89–152; BP diastolic 54–83; PULSE 85–102; RESP 12–27; TEMP 36.3–37.1; O2SAT 93–98
--- NOTE | 2023-11-17 00:03 | PC.NURSE ---
0002: Son called with ABG results per his request.
[2023-11-17 00:05] LABS: MRSA (PCR) NOT DETECTED (NOT DETECTE)
[2023-11-17] MEDS: methylPREDNISolone SOD SUCC 125 MG VIAL 60 MG IV PUSH ×2 (00:30→05:11)
[2023-11-17] MEDS: CEFEPIME 2 GM/NS 50 ML 2 GM/50 ML BAG IVPB ×2 (00:38→08:13)
[2023-11-17] MEDS: IPRATROPIUM 0.5 MG/ALBUTEROL SULFATE 2.5 MG AMPUL.NEB 3 ML INHALATION ×4 (02:17→20:36)
[2023-11-17 04:30] LABS: Glucose Point of Care 177 mg/dl (65-105)
[2023-11-17 05:04] LABS: Basophils Percent Auto 0.2 % (0.2-1.2); Hematocrit 49.3 % (42.0-52.0); Hemoglobin 14.7 g/dL (14.0-18.0); Immature Granulocyte Absolute 0.07 K/mm3 (0.00-0.031); Immature Granulocyte Percent A 0.5 % (0-0.5); Mean Corpuscular HGB Conc 29.8 g/dl (32-36); Mean Corpuscular Hemoglobin 27.7 pg (26-34); Monocytes Absolute Auto 0.5 K/mm3 (0.1-0.6); Monocytes Percent Auto 3.6 % (2.6-8.5); Neutrophils Absolute Auto 14.1 K/mm3 (1.3-6.7); Neutrophils Percent Auto 93.7 % (45.5-73.1); Platelet Count Result 210 k/mm3 (150-375); Red Cell Distribution Width 13.9 % (11.5-14.5)
[2023-11-17] MEDS: LACTATED RINGERS 1,000 ML 100 ML IV CONT ×2 (05:13→19:27)
[2023-11-17 05:27] LABS: Hemoglobin A1C 6.1 % (<5.7)
[2023-11-17 05:29] LABS: Alanine Aminotransferase 12 U/L (6-50); Albumin Level 3.9 g/dL (3.5-5.1); Alkaline Phosphatase 85 U/L (38-126); Anion Gap 6 mmol/L (4-12); Aspartate Amino Transferase 15 U/L (17-59); Bilirubin,Total 0.8 mg/dL (0.2-1.3); Blood Urea Nitrogen 31 mg/dL (9-20); Calcium 9.9 mg/dL (8.4-10.2); Carbon Dioxide 38 mmol/L (22-30); Chloride 88 mmol/L (98-107); Estimated CRCL calculation 66 ml/min; Estimated Glomerular Filt Rate 60; Glucose 166 mg/dL (65-110); Magnesium 2.2 mg/dL (1.6-2.3); Potassium 4.8 mmol/L (3.4-5.0); Sodium 132 mmol/L (137-145)
[2023-11-17] MEDS: VANCOMYCIN 1,500 MG/NS 500 ML 1,500 MG/500 ML BAG 250 MG IVPB (05:34)
[2023-11-17 05:41] LABS: Alveolar/Arterial O2 Gradient 137.2 mmHg; Base Excess ABG 4.7 mEq/l (+/-2.0); Fractional Inspired Oxygen 45 %; HCO3 ABG 37.2 mEq/l (22.0-26.0); Oxygen Content ABG 19.8 %vol (16.0-22.0); Oxygen Saturation ABG 88.1 % (95.0-100.0); Oxyhemoglobin 90.9 % THb (90.0-100.0); PO2 ABG 69.3 mmHg (80.0-100.0); PO2 FiO2 Ratio Arterial Blood 1.54 %; Total Hemoglobin 15.5 g/dL (12.0-18.0)
[2023-11-17 05:43] LABS: pH ABG 7.186 (7.350-7.450)
[2023-11-17 05:43] LABS: CRP 12.8 mg/dL (<1.0)
[2023-11-17 05:44] LABS: Device OTHER DEVICE; Modified Allen's Test Pass; PCO2 ABG 100.5 mmHg (35.0-45.0); Site Drawn RIGHT RADIAL
--- NOTE | 2023-11-17 06:27 | PCRCNOTE ---
Pt receiving Duoneb Q6 and has Albuterol neb Q6 ordered as well. Albuterol not given due to duplicate. RT attempted to call pharmacy to get order D'C'd, RT unable to get ahold of pharmacy. RT will let day shift therapist know.
--- NOTE | 2023-11-17 09:24 | PM.IMPN ---
Progress Note: A&P Assessment and Plan (1) Sepsis: Code(s): A41.9 - Sepsis, unspecified organism Status: Acute (2) Pneumonia: Code(s): J18.9 - Pneumonia, unspecified organism Status: Acute (3) Acute hypercapnic respiratory failure: Code(s): J96.02 - Acute respiratory failure with hypercapnia Status: Acute (4) Asthma exacerbation in COPD: Code(s): J44.1 - Chronic obstructive pulmonary disease with (acute) exacerbation; J45.901 - Unspecified asthma with (acute) exacerbation Status: Acute (5) Altered mental status: Code(s): R41.82 - Altered mental status, unspecified Status: Acute (6) Acute metabolic encephalopathy: Code(s): G93.41 - Metabolic encephalopathy Status: Acute Plan (1) Sepsis: ?Code(s): A41.9 - Sepsis, unspecified organism ?Status:?Acute ?Assessment and Plan: - meets SIRS criteria: HR, RR, WBC - lactic acid: - 30 mL/kg? = 3,450. some congestive changes on CXR, will start with judicious fluids. - suspected source: respiratory - started on Vancomycin and Cefepime on 11/15 - blood cultures drawn on 11/15 - UA:? 2+ protein, 2+ ketones, 3-5 rbc's, few mucus - CXR: probable central congestive change and mild interstitial edema. minimal right pleural effusion. - CT abd/pelvis/chest 1. 6.5 cm fusiform aneurysm of infrarenal aorta. Surgical evaluation is recommended. 2. Mild right upper lobe pneumonia. - spoke with family extensively about CT abd/chest/pelvis findings, plan to stabilize and then rediscuss Vasc/CT surgery evaluation in regard to the infrarenal aneurysm - patient admitted to IMU, in ICU as overflow for closer monitoring 45: Patient is afebrile, leukocytosis persists, blood culture does not bacterial growth, switch from cefepime to ceftriaxone per auto technician mechanic (2) Altered mental status: ?Code(s): R41.82 - Altered mental status, unspecified ?Status:?Acute ?Assessment and Plan: - worsening mental status since arrival, no longer responding to noxious stimuli - STAT Head CT and CT of chest/abd/pelvis, obtained at 1600. - Head CT Cerebral atherosclerosis and chronic small vessel ischemic changes of the cerebral white matter No acute intracranial finding Prominent right maxillary and mild bilateral ethmoid periosteal soft tissue thickening - discussion with family about CTA of head, family okay with forgoing at this time given AMS more likely related to CO2 and given patient's code status - CT abd/pelvis/chest 1. 6.5 cm fusiform aneurysm of infrarenal aorta. Surgical evaluation is recommended. 2. Mild right upper lobe pneumonia. - ABG, initial: pH 7.198, pCO2 99.1, pO2 60.6, HCO3 37.7, O2 sat 83.6% on 3L NC. - ABG, repeat: pH 7.146, pCO2 117.9, pO2 75.2, HCO3 39.8, O2 sat 89.1 % on BiPAP, 50% FiO2 - drooling yesterday and hallucinating, unable to perform stroke scale, improved with supplemental O2 per family. patient currently obtunded. - continue BIPAP 11/16: Patient unresponsive, likely resulting from CO2 retention (3) Acute hypercapnic respiratory failure: ?Code(s): J96.02 - Acute respiratory failure with hypercapnia ?Status:?Acute ?Assessment and Plan: - initial O2 sat: 94% on 3L NC - baseline O2 requirement: - ABG, initial: pH 7.198, pCO2 99.1, pO2 60.6, HCO3 37.7, O2 sat 83.6% on 3L NC. - ABG, repeat (1): pH 7.146, pCO2 117.9, pO2 75.2, HCO3 39.8, O2 sat 89.1 % on BiPAP, 50% FiO2 - ABG, repeat (2): pH 7.147, pCO2 99.9, pO2 72.2, HCO3 33.8, O2 sat 88.3% - CXR: Probable central congestive change and mild interstitial edema. Minimal right pleural effusion. - now on BIPAP, continue - lasix 40 IVP x1 - DuoNebs Q6H DAISY - continue steroids: methylprednisolone 60 mg IVP - repeat ABG - add TSH, UDS, viral PCR, and CPK - pulmonary consulted, awaiting recs - admission to IMU, telemetry 11/16: Continue CPAP, settings per now CO2 retenison is getting worse since midnight
--- NOTE | 2023-11-17 10:46 | PM.CNPUL ---
Assessment and Plan Assessment and plan (1) Respiratory failure with hypoxia and hypercapnia: Code(s): J96.91 - Respiratory failure, unspecified with hypoxia; J96.92 - Respiratory failure, unspecified with hypercapnia Status: Acute Assessment and Plan: Patient carries a diagnosis of COPD, 41.25 pack years, smoking 3/4 pack a day, I have no PFTs. CT scan of the chest on 11/16/2023 demonstrates no bullous emphysema. Patient with hypoxic respiratory failure diagnosed on 11/14/2023 and prescribed oxygen per his supervisor fur dressing. patient's serum bicarbonate on 07/12/2023 was 30 and on 01/02/2023 was 33. I have no prior blood gases. Patient presented with altered mental status, serum bicarbonate of 39, ABG on 3 L 7.20/99/61. At that time he was awake and able to communicate with the emergency room physician. Patient was placed on BiPAP 18/8 and subsequently deteriorated with a blood gas of 7.15/118/75. The patient was do not intubate and I placed on a noninvasive ventilator with AVAPS mode with a rate of 26, tidal volume 550, EPAP 8, minimal inspiratory pressure 9, maximal inspiratory pressure 35 and 60% FiO2 with subsequent blood gas of 7.15/100/72 and repeat 5 hours later was 7.29/68/133. With this PaCO2 of 68 he apparently told the nighttime ICU nurse that he was in a hospital. Repeat blood gas this morning with a pH of 7.19/100/69 and he opens his eyes to loud verbal commands but does not follow any commands. CT scan of the head was negative. CT angiogram of the head was not pursued. Certainly hypercarbic respiratory failure is contributing to his altered mental status but his initial ABG 7.20/99 he was communicating with the emergency room physician and subsequent blood gases with a PaCO2 of 100 show much worse mental status. Etiology of patient's acute on chronic hypercarbic and hypoxemic respiratory failure includes: COPD, COPD exacerbation, pneumonia, untreated obstructive sleep apnea, morbid obesity with possible obesity hypoventilation syndrome and/or a concurrent neurologic condition. Plan: Has been very difficult to ventilate with NIV given the patient's given his body habitus and his altered mental status. He does have a history of obstructive sleep apnea and I will increase his PEEP to 12 and increased his minimal inspiratory pressure to 13. He had minimal improvement in breath sounds and an increased leak with these settings. 1 hour later he fluttered his eyes more vigorously to verbal commands. He still was not following commands. The patient has evidence of a mild right upper lobe pneumonia and was started empirically on vancomycin and cefepime. His COVID, influenza, RSV RT PCR swab is negative. His MRSA swab is negative. Blood cultures, urine Legionella, urine pneumococcal antigen and mycoplasma IgM are pending. He comes from home and I recommend changing him to CAP coverage with ceftriaxone and Levaquin from a pulmonary perspective. I will send a respiratory pathogen panel. The patient did have wheezing on admission and he may have a COPD exacerbation. He has no wheezing at this time. I will decrease the Solu-Medrol to 20 mg IV q.6 hours, I will continue DuoNebs q.6 hours. Possibility of a concurrent neurologic condition being worked up by the hospitalist team. pulmonary inpatient services will resume on 11/20/2023. Call with questions. Discussed with Dr. Flowers, will follow with you. History of Present Illness History of Present Illness Consult date: 11/17/23 Chief complaint: hypercapnic respiratory failure,copd exacerbation Narrative: 11/17/2023: This is a new pulmonary consult for hypercarbic respiratory failure. 68-year-old with a history of coronary artery disease, obstructive sleep apnea, psoriasis, COPD and tobacco use. On 11/14/2023 the patient saw his outpatient supervisor fur dressing and I have that note. He described a 25 lb weight loss, dyspnea on exertion, vivid dreams and rachel
[2023-11-17] MEDS: levoFLOXacin 750 MG/D5W 150 ML 750 MG/150 ML BAG 100 MG IVPB (12:01)
[2023-11-17 12:05] LABS: Glucose Point of Care 158 mg/dl (65-105)
[2023-11-17 12:57] LABS: Alveolar/Arterial O2 Gradient 176.5 mmHg; Base Excess ABG 6.1 mEq/l (+/-2.0); Fractional Inspired Oxygen 60 %; HCO3 ABG 41.1 mEq/l (22.0-26.0); Oxygen Content ABG 20.1 %vol (16.0-22.0); PO2 ABG 104.8 mmHg (80.0-100.0); PO2 FiO2 Ratio Arterial Blood 1.75 %
[2023-11-17 12:58] LABS: Device NON-INVASIVE VENT; Modified Allen's Test Pass; Non-Invasive Vent Rate 26 /MIN; PCO2 ABG 133.2 mmHg (35.0-45.0); Site Drawn RIGHT RADIAL; pH ABG 7.107 (7.350-7.450)
[2023-11-17 12:59] LABS: Non-Invasive Expiratory Pressure 12 CMH2O
[2023-11-17] MEDS: methylPREDNISolone SOD SUCC 40 MG VIAL 20 MG IV PUSH (16:16)
[2023-11-17 16:22] LABS: Glucose Point of Care 139 mg/dl (65-105)
[2023-11-18] VITALS (35 sets, daily range): BP systolic 117–209; BP diastolic 69–195; PULSE 86–142; RESP 16–31; TEMP 36.2–37.5; O2SAT 90–97
[2023-11-18 00:31] LABS: Glucose Point of Care 147 mg/dl (65-105)
[2023-11-18] MEDS: IPRATROPIUM 0.5 MG/ALBUTEROL SULFATE 2.5 MG AMPUL.NEB 3 ML INHALATION ×4 (02:00→20:25)
[2023-11-18] MEDS: LORazepam INJ (*CRX) 2 MG/ML VIAL 1 MG IV PUSH (02:20)
[2023-11-18] MEDS: LACTATED RINGERS 1,000 ML 100 ML IV CONT (04:07)
[2023-11-18] MEDS: methylPREDNISolone SOD SUCC 40 MG VIAL 20 MG IV PUSH ×2 (05:43→16:22)
[2023-11-18 05:44] LABS: Glucose Point of Care 129 mg/dl (65-105)
[2023-11-18 06:42] LABS: Estimated CRCL calculation 73 ml/min; Estimated Glomerular Filt Rate > 60
[2023-11-18 07:01] LABS: Vancomycin Trough 9.7 ug/mL (10.0-20.0)
[2023-11-18 07:23] LABS: Alveolar/Arterial O2 Gradient 139.3 mmHg; Fractional Inspired Oxygen 40 %; HCO3 ABG 37.7 mEq/l (22.0-26.0); Oxygen Content ABG 18.8 %vol (16.0-22.0); Oxygen Saturation ABG 90.7 % (95.0-100.0); Oxyhemoglobin 92.3 % THb (90.0-100.0); PO2 ABG 64.7 mmHg (80.0-100.0); PO2 FiO2 Ratio Arterial Blood 1.62 %; Total Hemoglobin 14.5 g/dL (12.0-18.0)
[2023-11-18 07:26] LABS: Device NON-INVASIVE VENT; Modified Allen's Test Pass; PCO2 ABG 70.6 mmHg (35.0-45.0); Site Drawn LEFT RADIAL
[2023-11-18 07:27] LABS: Non-Invasive Vent Rate 26 /MIN
[2023-11-18 07:28] LABS: Non-Invasive Expiratory Pressure 12 CMH2O
[2023-11-18 07:33] LABS: pH ABG 7.345 (7.350-7.450)
[2023-11-18 09:09] LABS: Hematocrit 47.2 % (42.0-52.0); Mean Corpuscular HGB Conc 29.7 g/dl (32-36); Mean Corpuscular Hemoglobin 28.1 pg (26-34); Mean Corpuscular Volume 94.8 fl (80-100); Mean Platelet Volume 11.2 fl (7.4-10.4); Platelet Count Result 198 k/mm3 (150-375); Red Blood Count 4.98 M/mm3 (4.6-6.20); Red Cell Distribution Width 14.4 % (11.5-14.5); White Blood Count 15.4 K/mm3 (4.5-10.0)
--- NOTE | 2023-11-18 09:24 | PM.IMPN ---
Progress Note: A&P Assessment and Plan (1) Respiratory failure with hypoxia and hypercapnia: Code(s): J96.91 - Respiratory failure, unspecified with hypoxia; J96.92 - Respiratory failure, unspecified with hypercapnia Status: Acute Assessment and Plan: ABGs improving Continue BiPAP (2) Acute metabolic encephalopathy: Code(s): G93.41 - Metabolic encephalopathy Status: Acute Assessment and Plan: Improved (3) Sepsis: Code(s): A41.9 - Sepsis, unspecified organism Status: Acute Assessment and Plan: Resolving (4) Pneumonia: Code(s): J18.9 - Pneumonia, unspecified organism Status: Acute Assessment and Plan: Right upper lobe Continue Levaquin and ceftriaxone (5) HTN (hypertension): Code(s): I10 - Essential (primary) hypertension Status: Acute Assessment and Plan: Adequately controlled (6) Asthma exacerbation in COPD: Code(s): J44.1 - Chronic obstructive pulmonary disease with (acute) exacerbation; J45.901 - Unspecified asthma with (acute) exacerbation Status: Acute Assessment and Plan: Continue Solu-Medrol (7) Diabetes mellitus: Code(s): E11.9 - Type 2 diabetes mellitus without complications Status: Acute Assessment and Plan: FBS 129 on 11/17 Continue current regimen (8) AAA (abdominal aortic aneurysm) without rupture: Code(s): I71.40 - Abdominal aortic aneurysm, without rupture, unspecified Status: Acute Assessment and Plan: 6.5 cm Vascular consultation as outpatient Subjective Date/time seen: 11/18/23 09:24 Interval history: More alert today. Son at bedside. Tolerating BiPAP. Review of Systems Review of Systems: ROS unobtainable: Yes unobtainable due to medical condition Exam Narrative: Obese elderly gentleman lying comfortably in hospital bed with BiPAP in place. Sclerae nonicteric. Pupils equal round reactive to light. Neck without JVD. Chest with increased AP diameter coarse breath sounds. Heart distant S1 and S2 rate regular no audible murmurs or gallops. Abdomen protuberant with hypoactive bowel sounds no obvious tenderness no palpable masses. Extremities pedal pulses 2+, venous stasis changes bilaterally distal lower extremities, no edema. Musculoskeletal no gross deformity to visual inspection. Neurologic cranial nerves symmetric to visual inspection. Topographical Engineer symmetric bilaterally. Babinski's negative bilaterally. Psychiatric drowsy but arouses easily. Oriented to person. Follows commands. Cooperative. Objective Data Vital Signs Vital Signs: Vital Signs - 24 hr 11/17/23 10:00 11/17/23 11:27 11/17/23 12:00 Temperature Pulse Rate 93 93 92 Respiratory Rate 26 H Blood Pressure Pulse Oximetry 96 Oxygen Delivery BiPAP Fraction of Inspired Oxygen 11/17/23 12:00 11/17/23 12:00 11/17/23 13:21 Temperature 97.5 F L Pulse Rate 95 91 Respiratory Rate 26 H 26 H Blood Pressure 111/54 L Pulse Oximetry 97 97 Oxygen Delivery BiPAP Fraction of Inspired Oxygen 60 11/17/23 13:22 11/17/23 13:26 11/17/23 13:53 Temperature Pulse Rate 89 91 86 Respiratory Rate 26 H 26 H Blood Pressure Pulse Oximetry 97 Oxygen Delivery BiPAP Fraction of Inspired Oxygen 11/17/23 16:00 11/17/23 16:00 11/17/23 16:29 Temperature 97.3 F L Pulse Rate 86 85 Respiratory Rate 26 H Blood Pressure 115/63 Pulse Oximetry 98 98 Oxygen Delivery BiPAP Fraction of Inspired Oxygen 50 11/17/23 16:26 11/17/23 18:00 11/17/23 20:36 Temperature Pulse Rate 91 85 89 Respiratory Rate 26 H 26 H Blood Pressure Pulse Oximetry 97 Oxygen Delivery BiPAP Fraction of Inspired Oxygen 11/17/23 20:37 11/17/23 20:00 11/17/23 20:00 Temperature 98 F Pulse Rate 89 90 88 Respiratory Rate 26 H 26 H Blood Pressure 121/73 Pulse Oximetry 97 95 Oxygen Delivery BiPAP Fraction of Inspired O
[2023-11-18 09:33] LABS: Anion Gap -1 mmol/L (4-12); Blood Urea Nitrogen 42 mg/dL (9-20); Calcium 10.1 mg/dL (8.4-10.2); Carbon Dioxide 39 mmol/L (22-30); Chloride 92 mmol/L (98-107); Estimated CRCL calculation 73 ml/min; Estimated Glomerular Filt Rate > 60; Glucose 137 mg/dL (65-110); Potassium 4.9 mmol/L (3.4-5.0); Sodium 130 mmol/L (137-145)
[2023-11-18 12:07] LABS: Glucose Point of Care 159 mg/dl (65-105)
[2023-11-18] MEDS: levoFLOXacin 750 MG/D5W 150 ML 750 MG/150 ML BAG 100 MG IVPB (12:19)
[2023-11-18 12:58] LABS: Alveolar/Arterial O2 Gradient 92.7 mmHg; Base Excess ABG 11.6 mEq/l (+/-2.0); Fractional Inspired Oxygen 32 %; HCO3 ABG 39.7 mEq/l (22.0-26.0); Methemoglobin ABG 0.1 %THb (0-1.5); Oxygen Content ABG 18.2 %vol (16.0-22.0); PO2 ABG 55.8 mmHg (80.0-100.0); PO2 FiO2 Ratio Arterial Blood 1.74 %; Reduced Hemoglobin 8.9 %THb (0-5.0); Total Hemoglobin 14.4 g/dL (12.0-18.0); pH ABG 7.384 (7.350-7.450)
[2023-11-18 12:59] LABS: PCO2 ABG 68.1 mmHg (35.0-45.0)
[2023-11-18 13:01] LABS: Device NASAL CANNULA; Modified Allen's Test Pass; Oxygen Saturation ABG 87.5 % (95.0-100.0); Site Drawn RIGHT RADIAL
[2023-11-18] MEDS: ONDANSETRON INJ 4 MG/2 ML VIAL IV PUSH (14:30)
[2023-11-18] MEDS: hydrALAZINE HCL 20 MG/ML VIAL 10 MG IV PUSH (14:30)
--- NOTE | 2023-11-18 14:30 | ECG_ITS ---
SEE SCANNED COPY FOR CONFIRMED REPORT MTDD
[2023-11-18] MEDS: FUROSEMIDE INJ 40 MG/4 ML VIAL 20 MG IV PUSH (14:48)
[2023-11-18] MEDS: NITROGLYCERIN OINTMENT 1 INCH DOSE TOPICAL (15:03)
[2023-11-18 15:37] LABS: Troponin I < 0.012 ng/mL (0.000-0.034)
--- NOTE | 2023-11-18 16:10 | ECG_ITS ---
SEE SCANNED COPY FOR CONFIRMED REPORT MTDD
[2023-11-18 16:51] LABS: Glucose Point of Care 132 mg/dl (65-105)
[2023-11-18] MEDS: METOPROLOL TARTRATE INJ 5 MG/5 ML VIAL IV PUSH (16:51)
[2023-11-18] MEDS: dilTIAZem HCl INJ 25 MG/5 ML VIAL 10 MG IV PUSH (17:18)
--- NOTE | 2023-11-18 17:22 | ECG_ITS ---
SEE SCANNED COPY FOR CONFIRMED REPORT MTDD
[2023-11-18] MEDS: dilTIAZem 100 MG/100 ML 100 MG/100 ML BAG IV CONT (17:53)
[2023-11-18 18:32] LABS: Troponin I 0.013 ng/mL (0.000-0.034)
[2023-11-18] MEDS: ENOXAPARIN 100 MG/ML SYRINGE SUB-Q (20:17)
--- NOTE | 2023-11-18 22:20 | ECG_ITS ---
SEE SCANNED COPY FOR CONFIRMED REPORT MTDD
[2023-11-18 23:43] LABS: Troponin I 0.015 ng/mL (0.000-0.034)
[2023-11-19] VITALS (34 sets, daily range): BP systolic 120–165; BP diastolic 63–101; PULSE 82–141; RESP 18–31; TEMP 37.1–37.3; O2SAT 90–97
[2023-11-19 00:29] LABS: Glucose Point of Care 174 mg/dl (65-105)
[2023-11-19] MEDS: IPRATROPIUM 0.5 MG/ALBUTEROL SULFATE 2.5 MG AMPUL.NEB 3 ML INHALATION ×4 (03:05→21:11)
[2023-11-19] MEDS: dilTIAZem 100 MG/100 ML 100 MG/100 ML BAG 10 MG IV CONT ×2 (03:31→12:34)
[2023-11-19 04:07] LABS: Hematocrit 46.8 % (42.0-52.0); Mean Corpuscular HGB Conc 29.9 g/dl (32-36); Mean Corpuscular Hemoglobin 27.6 pg (26-34); Mean Corpuscular Volume 92.1 fl (80-100); Mean Platelet Volume 10.8 fl (7.4-10.4); Platelet Count Result 193 k/mm3 (150-375); Red Blood Count 5.08 M/mm3 (4.6-6.20); Red Cell Distribution Width 14.3 % (11.5-14.5); White Blood Count 14.4 K/mm3 (4.5-10.0)
[2023-11-19] MEDS: hydrALAZINE HCL 20 MG/ML VIAL 10 MG IV PUSH (04:10)
[2023-11-19 04:19] LABS: Blood Urea Nitrogen 34 mg/dL (9-20); Calcium 9.9 mg/dL (8.4-10.2); Carbon Dioxide > 40 mmol/L (22-30); Chloride 91 mmol/L (98-107); Estimated CRCL calculation 98 ml/min; Estimated Glomerular Filt Rate > 60; Glucose 151 mg/dL (65-110); Magnesium 2.3 mg/dL (1.6-2.3); Potassium 4.6 mmol/L (3.4-5.0); Sodium 133 mmol/L (137-145)
[2023-11-19 04:39] LABS: Alveolar/Arterial O2 Gradient 162.6 mmHg; Base Excess ABG 12.3 mEq/l (+/-2.0); Carboxyhemoglobin 0.8 % THb (0-2.0); Fractional Inspired Oxygen 44 %; HCO3 ABG 41.7 mEq/l (22.0-26.0); Methemoglobin ABG 0.2 %THb (0-1.5); Oxygen Content ABG 19.1 %vol (16.0-22.0); Oxygen Saturation ABG 90.1 % (95.0-100.0); Oxyhemoglobin 91.3 % THb (90.0-100.0); PO2 ABG 63.2 mmHg (80.0-100.0); PO2 FiO2 Ratio Arterial Blood 1.44 %; Reduced Hemoglobin 7.7 %THb (0-5.0); Total Hemoglobin 14.9 g/dL (12.0-18.0); pH ABG 7.351 (7.350-7.450)
[2023-11-19 04:41] LABS: Device NASAL CANNULA; Modified Allen's Test Pass; PCO2 ABG 77.1 mmHg (35.0-45.0); Site Drawn RIGHT RADIAL
--- NOTE | 2023-11-19 05:04 | PC.NURSE ---
Called Dr. Calvillo re critical pCO2 77.1 from ABG. Also updated that patient has a 21 beat run of Vtach at 0339. Primary team is to decide on a Cardiology consult today.
[2023-11-19] MEDS: methylPREDNISolone SOD SUCC 40 MG VIAL 20 MG IV PUSH ×2 (05:36→17:06)
[2023-11-19 06:03] LABS: Glucose Point of Care 158 mg/dl (65-105)
[2023-11-19] MEDS: FUROSEMIDE INJ 40 MG/4 ML VIAL IV PUSH (08:52)
[2023-11-19] MEDS: ENOXAPARIN 100 MG/ML SYRINGE SUB-Q ×2 (08:53→21:08)
--- NOTE | 2023-11-19 08:53 | P.PNIM_ITS ---
Progress Note: A&P Assessment and Plan (1) Atrial fibrillation with RVR: Code(s): I48.91 - Unspecified atrial fibrillation Status: Acute Assessment and Plan: * 4/6 Episodes of AFib, Flutter, Sinus Tach, HR initially controlled to 90s' to 100's with diltiazem (failed IV metoprolol) * 4/7 HR 136, likely flutter, continue diltiazem, add IV metoprolol, consult cardiology for rate, rhythm management (2) Congestive heart failure: Code(s): I50.9 - Heart failure, unspecified Status: Acute Assessment and Plan: * 4/6 fluids held, fursemide 20 mg, nitropaste, hydralazine given * 4/7 furosemide 40 mg iv x1 * f/u EKG, echo, CXR pending (3) Respiratory failure with hypoxia and hypercapnia: Code(s): J96.91 - Respiratory failure, unspecified with hypoxia; J96.92 - Respiratory failure, unspecified with hypercapnia Status: Acute Assessment and Plan: * PCO2 70s, PO2 50s 4/7 stable on 6 LPM NC, Bipap at night for BAR (4) Pneumonia: Code(s): J18.9 - Pneumonia, unspecified organism Status: Acute Assessment and Plan: * Right upper lobe * Continue Levaquin and ceftriaxone (5) Acute metabolic encephalopathy: Code(s): G93.41 - Metabolic encephalopathy Status: Acute Assessment and Plan: * Improved (6) Sepsis: Code(s): A41.9 - Sepsis, unspecified organism Status: Acute Assessment and Plan: * Resolving (7) HTN (hypertension): Code(s): I10 - Essential (primary) hypertension Status: Acute Assessment and Plan: * Improving with treatment of CHF (8) Asthma exacerbation in COPD: Code(s): J44.1 - Chronic obstructive pulmonary disease with (acute) exacerbation; J45.901 - Unspecified asthma with (acute) exacerbation Status: Acute Assessment and Plan: * Continue Solu-Medrol (9) Diabetes mellitus: Code(s): E11.9 - Type 2 diabetes mellitus without complications Status: Acute Assessment and Plan: * FBS 158 on 11/18 * Continue current regimen (10) AAA (abdominal aortic aneurysm) without rupture: Code(s): I71.40 - Abdominal aortic aneurysm, without rupture, unspecified Status: Acute Assessment and Plan: * 6.5 cm * Vascular consultation as outpatient * Control HR and BP Subjective Date/time seen: 11/19/23 08:53 Interval history: Tired. Otherwise no complaints. Denied pain. Denied shortness of breath at rest. Denied nausea or vomiting. Did have vomiting 4/6 before removal of BiPAP. Review of Systems Review of Systems: All systems reviewed & are unremarkable except as noted in HPI and below Exam Narrative: Obese elderly gentleman lying comfortably in hospital bed with BiPAP in place. Sclerae nonicteric. Pupils equal round reactive to light. Neck without JVD. Chest with increased AP diameter coarse breath sounds. Heart distant S1 and S2 rate regular, TACHY, SOFT APICAL SYSTOLIC MURMUR. Abdomen protuberant with hypoactive bowel sounds no obvious tenderness no pa lpable masses. Extremities pedal pulses 2+, venous stasis changes bilaterally distal lower extremities, no edema. Musculoskeletal no gross deformity to visual inspection. Neurologic cranial nerves symmetric to visual inspection. Research Study Assistant symmetric bilaterally. Babinski's negative bilaterally. Psychiatric drowsy but arouses easily. Oriented to person, place, year. Follows commands. Cooperative. Objective Data Vital Signs Vital Signs:
--- NOTE | 2023-11-19 08:53 | PM.IMPN ---
Progress Note: A&P Assessment and Plan (1) Atrial fibrillation with RVR: Code(s): I48.91 - Unspecified atrial fibrillation Status: Acute Assessment and Plan: 4/6 Episodes of AFib, Flutter, Sinus Tach, HR initially controlled to 90s' to 100's with diltiazem (failed IV metoprolol) 4/7 HR 136, likely flutter, continue diltiazem, add IV metoprolol, consult cardiology for rate, rhythm management (2) Congestive heart failure: Code(s): I50.9 - Heart failure, unspecified Status: Acute Assessment and Plan: 4/6 fluids held, fursemide 20 mg, nitropaste, hydralazine given 4/7 furosemide 40 mg iv x1 f/u EKG, echo, CXR pending (3) Respiratory failure with hypoxia and hypercapnia: Code(s): J96.91 - Respiratory failure, unspecified with hypoxia; J96.92 - Respiratory failure, unspecified with hypercapnia Status: Acute Assessment and Plan: PCO2 70s, PO2 50s 4/7 stable on 6 LPM NC, Bipap at night for BAR (4) Pneumonia: Code(s): J18.9 - Pneumonia, unspecified organism Status: Acute Assessment and Plan: Right upper lobe Continue Levaquin and ceftriaxone (5) Acute metabolic encephalopathy: Code(s): G93.41 - Metabolic encephalopathy Status: Acute Assessment and Plan: Improved (6) Sepsis: Code(s): A41.9 - Sepsis, unspecified organism Status: Acute Assessment and Plan: Resolving (7) HTN (hypertension): Code(s): I10 - Essential (primary) hypertension Status: Acute Assessment and Plan: Improving with treatment of CHF (8) Asthma exacerbation in COPD: Code(s): J44.1 - Chronic obstructive pulmonary disease with (acute) exacerbation; J45.901 - Unspecified asthma with (acute) exacerbation Status: Acute Assessment and Plan: Continue Solu-Medrol (9) Diabetes mellitus: Code(s): E11.9 - Type 2 diabetes mellitus without complications Status: Acute Assessment and Plan: FBS 158 on 11/18 Continue current regimen (10) AAA (abdominal aortic aneurysm) without rupture: Code(s): I71.40 - Abdominal aortic aneurysm, without rupture, unspecified Status: Acute Assessment and Plan: 6.5 cm Vascular consultation as outpatient Control HR and BP Subjective Date/time seen: 11/19/23 08:53 Interval history: Tired. Otherwise no complaints. Denied pain. Denied shortness of breath at rest. Denied nausea or vomiting. Did have vomiting 4/6 before removal of BiPAP. Review of Systems Review of Systems: All systems reviewed & are unremarkable except as noted in HPI and below Exam Narrative: Obese elderly gentleman lying comfortably in hospital bed with BiPAP in place. Sclerae nonicteric. Pupils equal round reactive to light. Neck without JVD. Chest with increased AP diameter coarse breath sounds. Heart distant S1 and S2 rate regular, TACHY, SOFT APICAL SYSTOLIC MURMUR. Abdomen protuberant with hypoactive bowel sounds no obvious tenderness no palpable masses. Extremities pedal pulses 2+, venous stasis changes bilaterally distal lower extremities, no edema. Musculoskeletal no gross deformity to visual inspection. Neurologic cranial nerves symmetric to visual inspection. [employer] Consultant symmetric bilaterally. Babinski's negative bilaterally. Psychiatric drowsy but arouses easily. Oriented to person, place, year. Follows commands. Cooperative. Objective Data Vital Signs Vital Signs: Vital Signs - 24 hr 11/18/23 10:00 11/18/23 10:11/18/23 11:28 Temperature 99.4 F Pulse Rate 91 91 96 Respiratory Rate 26 H 26 H Blood Pressure 128/72 Pulse Oximetry 95 97 Oxygen Delivery BiPAP Oxygen Flow Rate 11/18/23 11:45 11/18/23 12:00 11/18/23 12:00 Temperature 99.4 F Pulse Rate 107 H 106 H Respiratory Rate 25 H Blood Pressure 168/88 H Pulse Oximetry 94 91 Oxygen Delivery Nasal Cannula Oxygen Flow Rate 4 11/18/23 12:00 11/18/23
[2023-11-19] MEDS: METOPROLOL TARTRATE INJ 5 MG/5 ML VIAL IV PUSH ×3 (09:11→21:08)
--- NOTE | 2023-11-19 09:31 | ECG_ITS ---
Measurements Intervals [place] Rate: 99 P: * MO: * QRS: 12 QRSD: 85 T: 34 QT: 311 QTc: 368 Interpretive Statements ATRIAL FLUTTER/TACHYCARDIA ABNORMAL RHYTHM ECG SEE SCANNED COPY FOR SIGNATURE MTDD
[2023-11-19 12:54] LABS: Glucose Point of Care 185 mg/dl (65-105)
[2023-11-19] MEDS: levoFLOXacin 750 MG/D5W 150 ML 750 MG/150 ML BAG 100 MG IVPB (13:41)
[2023-11-19] MEDS: dilTIAZem 100 MG/100 ML 100 MG/100 ML BAG 15 MG IV CONT (18:55)
[2023-11-19 19:02] LABS: Glucose Point of Care 104 mg/dl (65-105)
--- NOTE | 2023-11-19 19:45 | PC.NURSE ---
This patient, Mil Card, was transferred to [facility] on 11/19/23 at 1945. Personal belongings sent with patient. Report given to Irish STERLING. Appropriate documentation sent with patient.
[2023-11-19 23:40] LABS: Glucose Point of Care 173 mg/dl (65-105)
[2023-11-20] VITALS (40 sets, daily range): BP systolic 138–162; BP diastolic 65–90; PULSE 79–97; RESP 17–26; TEMP 36.3–37.1; O2SAT 92–96
--- NOTE | 2023-11-20 | ECHO_ITS ---
Patient Info Name: Mil Card Age: 68 years : 1955 Gender: Male Ht: 71 in Wt: 262 lbs BSA: 2.48 m2 HR: 85 bpm BP: 140 / 82 mmHg Heart Rhythm: Sinus Rhythm Technical Quality: Fair Exam Date: 11/20/2023 9:02 AM Exam Location: Echo Lab Patient Status: Inpatient Admit Date: 11/17/2023 Staff Ordering Physician: Osmani Felix MD Ovens Supervisor: Hoda Aguirre RDCS Attending Provider: Dino Flowers MD Referring Physician: Elvira IRAHETA; Exam Type: CA echo dop color flow w con Study Info Indications - chf, mitral murmur Complete two-dimensional, color flow and Doppler transthoracic echocardiogram is performed with contrast to opacify the left ventricle and to improve the deliniation of the left ventricle endocardial borders. Contrast/Agitated Saline Contrast/Ag. Saline: Definity Amount: 2.00 ml Administered By: Hoda Aguirre RDCS Existing IV Access: Yes IV Access Condition: patent with no signs of infiltration Summary 1. A technically difficult echocardiogram definity contrast used to improve visualization. 2. Mild left ventricular hypertrophy with good systolic contractility and grade 1 diastolic noncompliance. 3. Mild left atrial enlarged. 4. No significant valvular dysfunction. Left Ventricle Left ventricular chamber dimension is normal. Left ventricular systolic function is normal, estimated at 65-70%. There is mild concentric increased left ventricular wall thickness. The left ventricular diastolic function is grade I diastolic dysfunction. Right Ventricle Right ventricular chamber dimension is normal. Left Atria Left atrial chamber dimension is mildly enlarged. Right Atria Right atrial chamber dimension is normal. Aortic Valve The aortic valve is trileaflet. There is mild aortic valve sclerosis. Pulmonic Valve The pulmonic valve is not well visualized. Mitral Valve The mitral valve has normal leaflets. Tricuspid Valve The tricuspid valve leaflets are not well visualized. Pericardium/Pleural The pericardium appears normal. Aorta The aortic root size at the sinus of Valsalva is normal. Left Ventricular Outflow Tract Name Value Normal LVOT 2D LVOT Diameter 2.13 cm LVOT Doppler LVOT Peak Gradient 5 mmHg LVOT Mean Gradient 3 mmHg LVOT VTI 21.46 cm LVOT VTI/AV VTI Ratio 0.74 LVOT Stroke Volume 76.50 ml LVOT CO 6.87 l/min LVOT CI 2.77 L/min/m2 Pulmonic Valve Name Value Normal RVOT Doppler RVOT Peak Gradient 4 mmHg PV Doppler PV Peak Gradient 5 mmHg Mitral Valve Name
[2023-11-20 00:05] LABS: Pneumococcal Antigen Urine Not Detected (Not Detected)
[2023-11-20] MEDS: dilTIAZem 100 MG/100 ML 100 MG/100 ML BAG 15 MG IV CONT ×3 (02:12→17:07)
[2023-11-20] MEDS: METOPROLOL TARTRATE INJ 5 MG/5 ML VIAL IV PUSH ×2 (02:20→10:11)
[2023-11-20 02:27] LABS: Adenovirus DNA Not Detected (Not Detected); Chlamydophila pneumoniae Not Detected (Not Detected); Coronavirus 229E Not Detected (Not Detected); Coronavirus HKU1 Not Detected (Not Detected); Coronavirus NL63 Not Detected (Not Detected); Coronavirus OC43 Not Detected (Not Detected); Human Metapneumovirus Not Detected (Not Detected); Human Parainfluenza Virus 1 Not Detected (Not Detected); Human Parainfluenza Virus 2 Not Detected (Not Detected); Human Parainfluenza Virus 3 Not Detected (Not Detected); Human Parainfluenza Virus 4 Not Detected (Not Detected); Human RSV B Not Detected (Not Detected); Influenza A Not Detected (Not Detected); Influenza B Not Detected (Not Detected); Mycoplasma pneumoniae Not Detected (Not Detected); Rhinovirus/Enterovirus Detected (Not Detected)
[2023-11-20] MEDS: IPRATROPIUM 0.5 MG/ALBUTEROL SULFATE 2.5 MG AMPUL.NEB 3 ML INHALATION ×4 (02:55→20:40)
[2023-11-20 04:49] LABS: Hematocrit 49.1 % (42.0-52.0); Hemoglobin 14.6 g/dL (14.0-18.0); Mean Corpuscular HGB Conc 29.7 g/dl (32-36); Mean Corpuscular Hemoglobin 27.4 pg (26-34); Mean Corpuscular Volume 92.1 fl (80-100); Mean Platelet Volume 10.5 fl (7.4-10.4); Platelet Count Result 194 k/mm3 (150-375); Red Blood Count 5.33 M/mm3 (4.6-6.20); Red Cell Distribution Width 14.2 % (11.5-14.5); White Blood Count 10.5 K/mm3 (4.5-10.0)
[2023-11-20 05:08] LABS: Blood Urea Nitrogen 38 mg/dL (9-20); Calcium 10.3 mg/dL (8.4-10.2); Carbon Dioxide > 40 mmol/L (22-30); Chloride 88 mmol/L (98-107); Estimated CRCL calculation 78 ml/min; Estimated Glomerular Filt Rate > 60; Glucose 157 mg/dL (65-110); Potassium 4.4 mmol/L (3.4-5.0); Sodium 133 mmol/L (137-145)
[2023-11-20] MEDS: methylPREDNISolone SOD SUCC 40 MG VIAL 20 MG IV PUSH ×2 (05:13→17:11)
[2023-11-20 06:12] LABS: Alveolar/Arterial O2 Gradient 146.3 mmHg; Carboxyhemoglobin 0.9 % THb (0-2.0); Fractional Inspired Oxygen 40 %; HCO3 ABG 40.3 mEq/l (22.0-26.0); Methemoglobin ABG 0.2 %THb (0-1.5); Oxygen Content ABG 20.9 %vol (16.0-22.0); Oxyhemoglobin 93.5 % THb (90.0-100.0); PO2 ABG 69.2 mmHg (80.0-100.0); PO2 FiO2 Ratio Arterial Blood 1.73 %; Reduced Hemoglobin 5.4 %THb (0-5.0); Total Hemoglobin 15.9 g/dL (12.0-18.0); pH ABG 7.441 (7.350-7.450)
[2023-11-20 06:14] LABS: Modified Allen's Test Pass; PCO2 ABG 60.6 mmHg (35.0-45.0); Site Drawn RIGHT RADIAL
[2023-11-20 06:16] LABS: Device OTHER DEVICE
[2023-11-20] MEDS: PERFLUTREN LIPID MICROSPHERES 1.5 ML VIAL DILUTED TO 10 ML TOTAL VOLUME IV PUSH (09:45)
[2023-11-20] MEDS: ENOXAPARIN 100 MG/ML SYRINGE SUB-Q (10:10)
--- NOTE | 2023-11-20 10:13 | IVDEFINITY ---
Prior to administration of IV Definity the patient was educated on the risks and benefits of the imaging enhancing agent including potential adverse side effects. The patient verbalized understanding. Allergies were verified. No exclusion criteria were identified and at least one of the following inclusion criteria were met: 1) physician request, 2) patient technically difficult to image (per the [place] [employer] guidelines of two or more segments not discernable within the apical view), or 3) questionable left ventricular function. ?
--- NOTE | 2023-11-20 10:41 | PM.CNCAR ---
Assessment and Plan Assessment and plan (1) Atrial fibrillation with RVR: Code(s): I48.91 - Unspecified atrial fibrillation Status: Acute Assessment and Plan: New onset atrial fibrillation with RVR in the setting of hypoxia and sepsis. He spontaneously converted to sinus rhythm on diltiazem drip. Will shift him from IV to p.o. diltiazem today [id number] score of 3 (age, HTN, vascular dz). Anticoagulation is indicated. Will start him on Eliquis 5mg b.i.d. for cardioembolic risk reduction Echo has been ordered and is pending Continue telemetry (2) Congestive heart failure: Code(s): I50.9 - Heart failure, unspecified Status: Acute Assessment and Plan: He does not appear to be in decompensated heart failure at this time. Echo is pending. (3) AAA (abdominal aortic aneurysm) without rupture: Code(s): I71.40 - Abdominal aortic aneurysm, without rupture, unspecified Status: Acute Assessment and Plan: 6.5cm infrarenal aortic aneurysm seen on CT. Will need surgical evaluation. Blood pressure control. (4) Respiratory failure with hypoxia and hypercapnia: Code(s): J96.91 - Respiratory failure, unspecified with hypoxia; J96.92 - Respiratory failure, unspecified with hypercapnia Status: Acute Assessment and Plan: Related to COPD, pneumonia. Improving, now on O2 per nasal cannula. Pulmonology is following. (5) Acute metabolic encephalopathy: Code(s): G93.41 - Metabolic encephalopathy Status: Acute Assessment and Plan: Improving. History of Present Illness History of Present Illness Consult date/time: 11/20/23 10:41 Requesting physician: Osmani Felix MD Consult reason: atrial fibrillation Reason For Visit: hypercapnic respiratory failure,copd exacerbation Narrative: Mil Card is a 68 year old male with coronary artery disease with stenting ~8 years ago. He was brought to the hospital after being found unresponsive by his sister in law. He does not remember any events surrounding this episode and therefore cannot provide any additional details. He is a poor historian. Cardiology is being asked to see him because of atrial fibrillation with rapid ventricular response. He denies any history of atrial fibrillation but he does recall being on warfarin following one of his heart attacks. He has been placed on a diltiazem drip and has converted to sinus rhythm at this point. He denies any chest pain, palpitations. He is short of breath and is on supplemental oxygen. He is otherwise comfortable and not in any distress. Review of Systems Review of Systems: All systems reviewed & are unremarkable except as noted in HPI and below [facility] Past Medical History Medical History AAA (abdominal aortic aneurysm) without rupture 11/17/2023 6.5 cm infrarenal BPH (benign prostatic hyperplasia) COPD (chronic obstructive pulmonary disease) Heart attack Heart disease Herpes zoster HTN (hypertension) Hyperlipidemia Morbid obesity with BMI of 40.0-44.9, adult Olecranon bursitis Psoriasis Tobacco use Surgical History Surgical History History of total bilateral knee replacement Dr. Ray Family History Family History Mother Diabetes mellitus Cancer Grandparent Diabetes mellitus Social History Social History Smoking packs per day: 0.75 Smoking cigarettes per day: 15.0 Years smoked: 55 Smoking pack-years: 41.25 Smoking status: Current every day smoker Second hand tobacco smoke exposure: Yes Alcohol intake: current Drinks per week: 3 Substance use: never Substance use type: does not use Last use: drinks 3 large rashaun and coke on the weekends Current Housing: Decline to Answer Concerned About Future Housing: Decline to Answer Difficulty Pay
[2023-11-20 12:09] LABS: Glucose Point of Care 157 mg/dl (65-105)
[2023-11-20] MEDS: levoFLOXacin 750 MG/D5W 150 ML 750 MG/150 ML BAG 100 MG IVPB (14:51)
--- NOTE | 2023-11-20 15:01 | PCSTNOTE ---
Please refer to the Modified Barium Swallow Evaluation in the EMR.
[2023-11-20] MEDS: lisinopriL 5 MG TABLET PO (16:22)
[2023-11-20 16:58] LABS: Glucose Point of Care 181 mg/dl (65-105)
[2023-11-20] MEDS: dilTIAZem HCL 60 MG TABLET PO (18:06)
--- NOTE | 2023-11-20 18:30 | PM.IMPN ---
Progress Note: A&P Assessment and Plan (1) Congestive heart failure: Code(s): I50.9 - Heart failure, unspecified Status: Acute (2) Atrial fibrillation with RVR: Code(s): I48.91 - Unspecified atrial fibrillation Status: Acute (3) AAA (abdominal aortic aneurysm) without rupture: Code(s): I71.40 - Abdominal aortic aneurysm, without rupture, unspecified Status: Acute (4) Respiratory failure with hypoxia and hypercapnia: Code(s): J96.91 - Respiratory failure, unspecified with hypoxia; J96.92 - Respiratory failure, unspecified with hypercapnia Status: Acute (5) Acute metabolic encephalopathy: Code(s): G93.41 - Metabolic encephalopathy Status: Acute Plan # acute on chronic hypercapnic and hypoxic respiratory failure # COPD # community-acquired pneumonia - longstanding COPD 41 pack-year history - CT scan concerning for bullous emphysema - patient having altered mental status from pCO2 greater than 100, he has decreased down to 60 with his current settings, no AVAPS at night - patient may be having a COPD exacerbation, Solu-Medrol decreased to 20 mg q.6 hours - acute encephalopathy may be secondary to hypercapnia which appears to be improving - sepsis present on admission secondary to possible pneumonia, started on vancomycin, cefepime 11/15- - antibiotics adjusted to Levaquin, Rocephin or recommendation from pulmonology, will continue 5 day course - patient passed swallow study and will be advanced to regular consistency diet, diabetic diet with his diabetes history # Chronic conditions -BPH: -COPD: -CAD: -hypertension: p.r.n. hydralazine, will continue old medications, will likely resume tomorrow - type 2 diabetes: Hemoglobin A1c 6.2, sliding scale insulin, holding home metformin, Accu-Cheks a.c. HS, hypoglycemia protocol, A1c 6.1 - infrarenal aneurysm: Will need outpatient surgery consult Diet: diabetic diet, passed swallow study DVT prophylaxis: on Eliquis Code status: DNR/DNI Disposition: likely home in 2-3 days Time Spent With Patient Time: 35 minutes Subjective Date/time seen: 11/20/23 18:30 Interval history: patient seen and examined. He is doing well with no new complaints. Since started on PO diltiazem we are weaning off the diltiazem drip. Patient work with PT and OT as he is hemodynamically stable. He did well with bedside swallow study and speech therapy evaluation, will resume regular diet. Will continue Levaquin And Rocephin for the pneumonia. Review of Systems Review of Systems: 10 point ROS complete, negative other than what is specified in HPI. Exam Narrative: - GENERAL: Pleasant elderly male in no acute distress. Well-nourished. - EYES: EOMI. Anicteric. - HENT: Moist mucous membranes. - LUNGS: Clear to auscultation bilaterally, no wheezing, rhonchi, or rales. - CARDIOVASCULAR: Regular rate and rhythm. No murmur. No JVD. - ABDOMEN: Soft, non-tender and non-distended. No palpable masses. - EXTREMITIES: No edema. Peripheral pulses 2+. Non-tender. - NEUROLOGIC: No focal neurological deficits. CN II-XII grossly intact. - PSYCHIATRIC: Awake, Alert and oriented x 3. Appropriate mood and affect. - SKIN: No rashes or lesions. Warm. - LYMPH: No cervical lymphadenopathy. Objective Data Vital Signs Vital Signs: Vital Signs - 24 hr 11/19/23 18:55 11/19/23 18:55 11/19/23 20:22 Temperature 37.1 C Pulse Rate 86 86 88 Respiratory Rate 22 H Blood Pressure 126/70 126/70 128/68 Pulse Oximetry 94 Oxygen Delivery Oxygen Flow Rate Fraction of Inspired Oxygen 11/19/23 21:08 11/19/23 20:30 11/19/23 21:12 Temperature Pulse Rate 89 88 92 Respiratory Rate 20 Blood Pressure 128/65 Pulse Oximetry Oxygen Delivery Oxygen Flow Rate Fraction of Inspired Oxygen 11/19/23 21:15 11/19/23 21:19 11/19/23 21:19 Temperature Pulse Rate 96 Respiratory Rate 20 31 H Blood Pressure Pulse Oxim
[2023-11-20 20:50] LABS: Glucose Point of Care 149 mg/dl (65-105)
[2023-11-20] MEDS: APIXABAN 5 MG TABLET PO (22:09)
[2023-11-21] VITALS (25 sets, daily range): BP systolic 128–155; BP diastolic 79–84; PULSE 77–114; RESP 16–25; TEMP 36.4–36.8; O2SAT 92–99
[2023-11-21] MEDS: dilTIAZem HCL 60 MG TABLET PO ×5 (00:55→23:22)
[2023-11-21] MEDS: IPRATROPIUM 0.5 MG/ALBUTEROL SULFATE 2.5 MG AMPUL.NEB 3 ML INHALATION ×4 (02:56→20:19)
[2023-11-21 04:45] LABS: Hematocrit 49.1 % (42.0-52.0); Mean Corpuscular HGB Conc 30.5 g/dl (32-36); Mean Corpuscular Hemoglobin 27.2 pg (26-34); Mean Corpuscular Volume 89.1 fl (80-100); Mean Platelet Volume 10.8 fl (7.4-10.4); Platelet Count Result 206 k/mm3 (150-375); Red Blood Count 5.51 M/mm3 (4.6-6.20); Red Cell Distribution Width 14.2 % (11.5-14.5)
[2023-11-21 04:57] LABS: Blood Urea Nitrogen 38 mg/dL (9-20); Calcium 10.4 mg/dL (8.4-10.2); Carbon Dioxide > 40 mmol/L (22-30); Chloride 88 mmol/L (98-107); Estimated CRCL calculation 78 ml/min; Estimated Glomerular Filt Rate > 60; Glucose 162 mg/dL (65-110); Potassium 4.3 mmol/L (3.4-5.0); Sodium 131 mmol/L (137-145)
[2023-11-21] MEDS: methylPREDNISolone SOD SUCC 40 MG VIAL 20 MG IV PUSH ×2 (05:14→17:21)
[2023-11-21 07:39] LABS: Glucose Point of Care 160 mg/dl (65-105)
--- NOTE | 2023-11-21 08:06 | PM.PNCARD ---
Progress Note: A&P Assessment and Plan (1) Atrial fibrillation with RVR: Code(s): I48.91 - Unspecified atrial fibrillation Status: Acute Assessment and Plan: New onset atrial fibrillation with RVR in the setting of hypoxia and sepsis. He spontaneously converted to sinus rhythm on diltiazem drip. Continue p.o. diltiazem, can be shifted to long acting form tomorrow (240mg daily) [id number] score of 3 (age, HTN, vascular dz). Anticoagulation is indicated. Will start him on Eliquis 5mg b.i.d. for cardioembolic risk reduction Echo showed normal LV systolic function, grade I diastolic dysfunction, no valvular abnormalities. Cardiology will follow along on an as needed basis. Please call with questions (2) Congestive heart failure: Code(s): I50.9 - Heart failure, unspecified Status: Acute Assessment and Plan: No evidence of decompensated heart failure. Echo showed normal LV systolic function, grade I diastolic dysfunction, no valvular abnormalities. (3) AAA (abdominal aortic aneurysm) without rupture: Code(s): I71.40 - Abdominal aortic aneurysm, without rupture, unspecified Status: Acute Assessment and Plan: 6.5cm infrarenal aortic aneurysm seen on CT. Will arrange for outpatient vascular surgery evaluation. Blood pressure control. (4) Respiratory failure with hypoxia and hypercapnia: Code(s): J96.91 - Respiratory failure, unspecified with hypoxia; J96.92 - Respiratory failure, unspecified with hypercapnia Status: Acute Assessment and Plan: Related to COPD, pneumonia. Improving, now on O2 per nasal cannula. Pulmonology is following. (5) Acute metabolic encephalopathy: Code(s): G93.41 - Metabolic encephalopathy Status: Acute Assessment and Plan: Improving. Subjective Date/time seen: 11/21/23 08:06 Interval history: Cardiology follow up for atrial fibrillation Date of service 11/21/2023: Feeling better today. Wants to know when he can go home. On telemetry he remains in sinus rhythm. RN reported some hematuria yesterday afternoon but today varela with clear urine and no reports of hematuria overnight. Review of Systems Review of Systems: All systems reviewed & are unremarkable except as noted in HPI and below Exam Const: General: comfortable, no acute distress, alert and awake Orientation/consciousness: patient oriented x3 HENMT: Head: normal to inspection Eyes: General: appearance normal, both eyes and all related structures Pupils: Equal, round and reactive pupils present Neck: Neck: normal visual inspection, supple and no JVD Carotids: normal carotid upstroke Resp: Effort & Inspection: normal respiratory effort and able to speak in complete sentences Auscultation: not clear to auscultation bilaterally, wheezes and diminished lung sounds Cardio: Rate: regular rate Rhythm: regular rhythm Heart sounds: S1 normal heart sound present, S2 normal heart sound present and Murmur heart sound present systolic GI: Auscultation: normal bowel sounds Skin: General skin exam: normal color Neuro: General: patient oriented x3 Cranial nerves: Yes Equal, round and reactive pupils present Extrem: Other: no edema Psych: Appearance: grossly normal Mental Status: mental status grossly normal Objective Data Vital Signs Vital Signs: Vital Signs - 24 hr 11/20/23 08:33 11/20/23 08:33 11/20/23 08:40 Temperature Pulse Rate 96 96 97 Respiratory Rate 18 18 18 Blood Pressure Pulse Oximetry 92 Oxygen Delivery Mechanical Ventilation Oxygen Flow Rate 6 Fraction of Inspired Oxygen 11/20/23 09:55 11/20/23 10:00 11/20/23 10:11 Temperature Pulse Rate 94 94 95 Respiratory Rate Blood Pressure 158/89 H 158/89 H Pulse Oximetry Oxygen Delivery Oxygen Flow Rate Fraction of Inspired Oxygen 11/20/23 11:47 11/20/23 13:13 11/20/23 13:19 Temperature 36.7 C Pulse Rate 88 95 93 Re
[2023-11-21] MEDS: APIXABAN 5 MG TABLET PO ×2 (08:29→21:15)
[2023-11-21] MEDS: lisinopriL 5 MG TABLET PO (08:29)
[2023-11-21 11:36] LABS: Glucose Point of Care 201 mg/dl (65-105)
[2023-11-21] MEDS: levoFLOXacin 750 MG/D5W 150 ML 750 MG/150 ML BAG 100 MG IVPB (11:56)
[2023-11-21] MEDS: INSULIN ASPART (*BKC) 100 UNITS/ML SUB-Q ×2 (13:04→21:15)
--- NOTE | 2023-11-21 13:07 | PM.IMPN ---
Progress Note: A&P Assessment and Plan (1) Congestive heart failure: Code(s): I50.9 - Heart failure, unspecified Status: Acute (2) Atrial fibrillation with RVR: Code(s): I48.91 - Unspecified atrial fibrillation Status: Acute (3) AAA (abdominal aortic aneurysm) without rupture: Code(s): I71.40 - Abdominal aortic aneurysm, without rupture, unspecified Status: Acute (4) Respiratory failure with hypoxia and hypercapnia: Code(s): J96.91 - Respiratory failure, unspecified with hypoxia; J96.92 - Respiratory failure, unspecified with hypercapnia Status: Acute (5) Acute metabolic encephalopathy: Code(s): G93.41 - Metabolic encephalopathy Status: Acute (6) Sepsis: Code(s): A41.9 - Sepsis, unspecified organism Status: Acute Plan # acute on chronic hypercapnic and hypoxic respiratory failure # COPD # community-acquired pneumonia - longstanding COPD 41 pack-year history - CT scan concerning for bullous emphysema - patient having altered mental status from pCO2 greater than 100, he has decreased down to 60 with his current settings, no AVAPS at night - patient may be having a COPD exacerbation, Solu-Medrol decreased to 20 mg q.6 hours - acute encephalopathy may be secondary to hypercapnia which appears to be improving - antibiotic started on vanc, cefepime, will complete 5 days of Rocephin and Levaquin - patient passed swallow study and will be advanced to regular consistency diet, diabetic diet with his diabetes history - PT and OT consulted for debility # AFib with RVR - patient AFib likely secondary to pneumonia - Cardiology consulted: recs for diltiazem and lisinopril, AC with eliquis - currently on diltiazem 60mg q6hr, will transition to 240 mg p.o. diltiazem tomorrow - Chads-2Vasc score 3, started Eliquis # Chronic conditions- will restart home meds soon -BPH: Flomax -COPD: p.r.n. albuterol -CAD: Zetia, aspirin, -hypertension: p.r.n. hydralazine, we have increased diltiazem, restarted lisinopril at 5 mg (home 40mg dose), will discontinue amlodipine, Coreg - type 2 diabetes:? Hemoglobin A1c 6.2, sliding scale insulin, holding home metformin, Accu-Kariks a.christine , hypoglycemia protocol, A1c 6.1 - infrarenal aneurysm:? Will need outpatient surgery consult Diet:??diabetic diet, passed swallow study DVT prophylaxis:? on Eliquis Code status:?DNR/DNI Disposition:?likely home in 1-3 days pending PT/OT eval, downgrade from IMU Subjective Date/time seen: 11/21/23 13:07 Interval history: patient seen examined. He is single no new complaints. We have weaned off with IV diltiazem and on p.o. diltiazem. We have started Eliquis for a chads Vasc score 3, anticoagulation for AFib. Patient will complete 5 days of Rocephin and Levaquin. PT and OT consulted. Will downgrade from IMU To [facility]. patient denies fever, chills, nausea vomiting, diarrhea, chest pain, shortness of breath. Review of Systems Review of Systems: 10 point ROS complete, negative other than what is specified in HPI. Exam Narrative: - GENERAL:? ? Pleasant elderly male in no acute distress - EYES: EOMI. Anicteric. - HENT: Moist mucous membranes. - LUNGS: Clear to auscultation bilaterally, no wheezing, rhonchi, or rales. breathing comfortably on 6 oxygen by nasal cannula - CARDIOVASCULAR: Regular rate and rhythm. No murmur. No JVD. - ABDOMEN: Soft, non-tender and non-distended. No palpable masses. - EXTREMITIES: No edema. Peripheral pulses 2+. Non-tender. - NEUROLOGIC: No focal neurological deficits. CN II-XII grossly intact. - PSYCHIATRIC: Awake, Alert and oriented x 3. Appropriate mood and affect. - SKIN: No rashes or lesions. Warm. - LYMPH: No cervical lymphadenopathy. Objective Data Vital Signs Vital Signs: Vital Signs - 24 hr 11/20/23 13:13 11/20/23 13:19 11/20/23 14:00 Temperature Pulse Rate 95 93 94 Respiratory Rate 18 18 Blood Pressure 151/88 H Pulse Oximetry
--- NOTE | 2023-11-21 13:29 | PM.PNPUL ---
Progress Note: A&P Assessment and Plan (1) Respiratory failure with hypoxia and hypercapnia: Code(s): J96.91 - Respiratory failure, unspecified with hypoxia; J96.92 - Respiratory failure, unspecified with hypercapnia Status: Acute Assessment and Plan: Patient carries a diagnosis of COPD, 41.25 pack years, smoking 3/4 pack a day, I have no PFTs. CT scan of the chest on 11/16/2023 demonstrates no bullous emphysema. 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 patient's serum bicarbonate on 07/12/2023 was 30 and on 01/02/2023 was 33. I have no prior blood gases. Patient presented with altered mental status, serum bicarbonate of 39, ABG on 3 L 7.20/99/61. At that time he was awake and able to communicate with the emergency room physician. Patient was placed on BiPAP 18/8 and subsequently deteriorated with a blood gas of 7.15/118/75. The patient was do not intubate and I placed on a noninvasive ventilator with AVAPS mode with a rate of 26, tidal volume 550, EPAP 8, minimal inspiratory pressure 9, maximal inspiratory pressure 35 and 60% FiO2 with subsequent blood gas of 7.15/100/72 and repeat 5 hours later was 7.29/68/133. With this PaCO2 of 68 he apparently told the nighttime ICU nurse that he was in a hospital. Repeat blood gas this morning with a pH of 7.19/100/69 and he opens his eyes to loud verbal commands but does not follow any commands. CT scan of the head was negative. CT angiogram of the head was not pursued. Certainly hypercarbic respiratory failure is contributing to his altered mental status but his initial ABG 7.20/99 he was communicating with the emergency room physician and subsequent blood gases with a PaCO2 of 100 show much worse mental status. Etiology of patient's acute on chronic hypercarbic and hypoxemic respiratory failure includes: COPD, COPD exacerbation, pneumonia, untreated obstructive sleep apnea, morbid obesity with possible obesity hypoventilation syndrome and/or a concurrent neurologic condition. Plan: Has been very difficult to ventilate with NIV given the patient's given his body habitus and his altered mental status. He does have a history of obstructive sleep apnea and I will increase his PEEP to 12 and increased his minimal inspiratory pressure to 13. He had minimal improvement in breath sounds and an increased leak with these settings. 1 hour later he fluttered his eyes more vigorously to verbal commands. He still was not following commands. The patient has evidence of a mild right upper lobe pneumonia and was started empirically on vancomycin and cefepime. His COVID, influenza, RSV RT PCR swab is negative. His MRSA swab is negative. Blood cultures, urine Legionella, urine pneumococcal antigen and mycoplasma IgM are pending. He comes from home and I recommend changing him to CAP coverage with ceftriaxone and Levaquin from a pulmonary perspective. I will send a respiratory pathogen panel. The patient did have wheezing on admission and he may have a COPD exacerbation. He has no wheezing at this time. I will decrease the Solu-Medrol to 20 mg IV q.6 hours, I will continue DuoNebs q.6 hours. Possibility of a concurrent neurologic condition being worked up by the hospitalist team. He appears to meet criteria for a nppv, which would address several issues. He has BAR, does not use CPAP, active sleeper and gets tangled in CPAP tubing. Correcting sleep-disordered breathing often calms down active sleepers. With sleep apnea, the body has not decide between breathing (staying alive) vs sleeping (getting rest) - breathing wins every time. Restlessness and frequent awakenings occur with undertreated BAR. With a non-invasive device, he would not need to return to sleep lab, could go home with device from hospital, and this could help him with daytime ventilation using a mouthpiece. plan: 11/20/23; Respiratory Therapy to arrange no
[2023-11-21 14:31] LABS: Mycoplasma IgM Antibody Titer 7 U/mL (<770)
--- NOTE | 2023-11-21 14:38 | PCRCNOTE ---
ALL REQUESTING PAPERWORK AND ORDER FOR HOME NIV HAS BEEN SIGNED AND FAXED TO ZULEIKA AT [facility]. AWAITING APPROVAL.
[2023-11-21 15:43] LABS: Glucose Point of Care 194 mg/dl (65-105)
[2023-11-21 21:13] LABS: Glucose Point of Care 226 mg/dl (65-105)
[2023-11-21 23:31] LABS: Glucose Point of Care 209 mg/dl (65-105)
[2023-11-22] VITALS (17 sets, daily range): BP systolic 133–150; BP diastolic 76–85; PULSE 77–95; RESP 18–24; TEMP 36.1–36.4; O2SAT 91–96
[2023-11-22] MEDS: IPRATROPIUM 0.5 MG/ALBUTEROL SULFATE 2.5 MG AMPUL.NEB 3 ML INHALATION ×4 (03:00→20:20)
[2023-11-22 04:37] LABS: Hematocrit 47.3 % (42.0-52.0); Mean Corpuscular HGB Conc 31.7 g/dl (32-36); Mean Corpuscular Hemoglobin 27.8 pg (26-34); Mean Corpuscular Volume 87.8 fl (80-100); Mean Platelet Volume 10.9 fl (7.4-10.4); Platelet Count Result 200 k/mm3 (150-375); Red Blood Count 5.39 M/mm3 (4.6-6.20); Red Cell Distribution Width 14.2 % (11.5-14.5); White Blood Count 13.9 K/mm3 (4.5-10.0)
[2023-11-22] MEDS: methylPREDNISolone SOD SUCC 40 MG VIAL 20 MG IV PUSH ×2 (04:49→17:30)
[2023-11-22 04:54] LABS: Anion Gap 2 mmol/L (4-12); Blood Urea Nitrogen 39 mg/dL (9-20); Calcium 10.3 mg/dL (8.4-10.2); Carbon Dioxide 39 mmol/L (22-30); Chloride 89 mmol/L (98-107); Estimated CRCL calculation 86 ml/min; Estimated Glomerular Filt Rate > 60; Glucose 182 mg/dL (65-110); Potassium 4.6 mmol/L (3.4-5.0); Sodium 130 mmol/L (137-145)
[2023-11-22 07:30] LABS: Glucose Point of Care 166 mg/dl (65-105)
[2023-11-22] MEDS: lisinopriL 5 MG TABLET PO (09:03)
[2023-11-22] MEDS: APIXABAN 5 MG TABLET PO ×2 (09:03→21:07)
[2023-11-22] MEDS: dilTIAZem HCL CD 240 MG CAP.24HR PO (09:03)
[2023-11-22 11:29] LABS: Glucose Point of Care 182 mg/dl (65-105)
--- NOTE | 2023-11-22 13:29 | PM.IMPN ---
Progress Note: A&P Assessment and Plan (1) Congestive heart failure: Code(s): I50.9 - Heart failure, unspecified Status: Acute (2) Atrial fibrillation with RVR: Code(s): I48.91 - Unspecified atrial fibrillation Status: Acute (3) AAA (abdominal aortic aneurysm) without rupture: Code(s): I71.40 - Abdominal aortic aneurysm, without rupture, unspecified Status: Acute (4) Respiratory failure with hypoxia and hypercapnia: Code(s): J96.91 - Respiratory failure, unspecified with hypoxia; J96.92 - Respiratory failure, unspecified with hypercapnia Status: Acute (5) Acute metabolic encephalopathy: Code(s): G93.41 - Metabolic encephalopathy Status: Acute (6) Sepsis: Code(s): A41.9 - Sepsis, unspecified organism Status: Acute Plan # acute on chronic hypercapnic and hypoxic respiratory failure # COPD # community-acquired pneumonia - longstanding COPD 41 pack-year history - CT scan concerning for bullous emphysema - patient having altered mental status from pCO2 greater than 100, he has decreased down to 60 with his current settings, no AVAPS at night - patient may be having a COPD exacerbation, Solu-Medrol decreased to 20 mg q6 -> q12hr - pulmonology ordered AVAPS for patient - acute encephalopathy may be secondary to hypercapnia which appears to be improving - antibiotic started on vanc, cefepime, will complete 5 days of Rocephin and Levaquin today - PT and OT consulted for debility # AFib with RVR - patient AFib likely secondary to pneumonia - Cardiology consulted: recs for diltiazem and lisinopril, AC with eliquis - diltiazem 240mg daily - Chads-2Vasc score 3, started Eliquis # Chronic conditions- will restart home meds soon -BPH: Flomax -COPD: p.r.n. albuterol -CAD: Zetia, aspirin, -hypertension: p.r.n. hydralazine, we have increased diltiazem, restarted lisinopril at 5 mg (home 40mg dose), will discontinue amlodipine, Coreg - type 2 diabetes:? Hemoglobin A1c 6.2, sliding scale insulin, holding home metformin, Accu-Cheks a.c. HS, hypoglycemia protocol, A1c 6.1 - infrarenal aneurysm:? Will need outpatient surgery consult Diet:??diabetic diet, passed swallow study DVT prophylaxis:? on Eliquis Code status:?DNR/DNI Disposition:?likely home in 1-2 days pending PT/OT eval, med/tele status Subjective Date/time seen: 11/22/23 13:29 Interval history: Patient seen examined. He is doing well no new complaints. Will remove Hart catheter today. we have adjusted Cardizem 240 mg daily. Heart rate appears to be stable. Pulmonology ordered the AVAPS through [facility]. patient denies fever, chills, nausea vomiting, diarrhea. He feels much better today. Review of Systems Review of Systems: All systems reviewed & are unremarkable except as noted in HPI and below Exam Narrative: - GENERAL:? ? Pleasant elderly male in no acute distress - EYES: EOMI. Anicteric. - HENT: Moist mucous membranes. - LUNGS: Clear to auscultation bilaterally, no wheezing, rhonchi, or rales. breathing comfortably on 5 oxygen by nasal cannula - CARDIOVASCULAR: Regular rate and rhythm. No murmur. No JVD. - ABDOMEN: Soft, non-tender and non-distended. No palpable masses. - EXTREMITIES: No edema. Peripheral pulses 2+. Non-tender. - NEUROLOGIC: No focal neurological deficits. CN II-XII grossly intact. - PSYCHIATRIC: Awake, Alert and oriented x 3. Appropriate mood and affect. - SKIN: No rashes or lesions. Warm. - LYMPH: No cervical lymphadenopathy. Objective Data Vital Signs Vital Signs: Vital Signs - 24 hr 11/21/23 13:32 11/21/23 13:43 11/21/23 14:00 Temperature Pulse Rate 95 99 100 Respiratory Rate 20 20 Blood Pressure Pulse Oximetry Oxygen Delivery Oxygen Flow Rate Fraction of Inspired Oxygen 11/21/23 16:00 11/21/23 16:00 11/21/23 20:19 Temperature 36.7 C Pulse Rate 93 91 106 H Respiratory Rate 16 20 Blood Pressure 142/81 H Pulse Oximet
[2023-11-22 16:48] LABS: Glucose Point of Care 182 mg/dl (65-105)
--- NOTE | 2023-11-22 19:10 | P.PNPL_ITS ---
Progress Note: A&P Assessment and Plan (1) Respiratory failure with hypoxia and hypercapnia: Code(s): J96.91 - Respiratory failure, unspecified with hypoxia; J96.92 - Respiratory failure, unspecified with hypercapnia Status: Acute Assessment and Plan: Patient carries a diagnosis of COPD, 41.25 pack years, smoking 3/4 pack a day, I have no PFTs. CT scan of the chest on 11/16/2023 demonstrates no bullous emphysema. 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 patient's serum bicarbonate on 07/12/2023 was 30 and on 01/02/2023 was 33. I have no prior blood gases. Patient presented with altered mental status, serum bicarbonate of 39, ABG on 3 L 7.20/99/61. At that time he was awake and able to communicate with the emergency room physician. Patient was placed on BiPAP 18/8 and subsequently deteriorated with a blood gas of 7.15/118/75. The patient was do not intubate and I placed on a noninvasive ventilator with AVAPS mode with a rate of 26, tidal volume 550, EPAP 8, minimal inspiratory pressure 9, maximal inspiratory pressure 35 and 60% FiO2 with subsequent blood gas of 7.15/100/72 and repeat 5 hours later was 7.29/68/133. With this PaCO2 of 68 he apparently told the nighttime ICU nurse that he was in a hospital. Repeat blood gas this morning with a pH of 7.19/100/69 and he opens his eyes to loud verbal commands but does not follow any commands. CT scan of the head was negative. CT angiogram of the head was not pursued. Certainly hypercarbic respiratory failure is contributing to his altered mental status but his initial ABG 7.20/99 he was communicating with the emergency room physician and subsequent blood gases with a PaCO2 of 100 show much worse mental status. Etiology of patient's acute on chronic hypercarbic and hypoxemic respiratory failure includes: COPD, COPD exacerbation, pneumonia, untreated obstructive sleep apnea, morbid obesity with possible obesity hypoventilation syndrome and/or a concurrent neurologic condition. Plan: Has been very difficult to ventilate with NIV given the patient's given his body habitus and his altered mental status. He does have a history of obs tructive sleep apnea and I will increase his PEEP to 12 and increased his minimal inspiratory pressure to 13. He had minimal improvement in breath sounds and an increased leak with these settings. 1 hour later he fluttered his eyes more vigorously to verbal commands. He still was not following commands. The patient has evidence of a mild right upper lobe pneumonia and was started empirically on vancomycin and cefepime. His COVID, influenza, RSV RT PCR swab is negative. His MRSA swab is negative. Blood cultures, urine Legionella, urine pneumococcal antigen and mycoplasma IgM are pending. He comes from home and I recommend changing him to CAP coverage with ceftriaxone and Levaquin from a pulmonary perspective. I will send a respiratory pathogen panel. The patient did have wheezing on admission and he may have a COPD exacerbation. He has no wheezing at this time. I will decrease the Solu-Medrol to 20 mg IV q.6 hours, I will continue DuoNebs q.6 hours. Possibility of a concurrent neurologic condition being worked up by the hospitalist team. He appears to meet criteria for a nppv, which would address several issues. He has BAR, does not use CPAP, active sleeper and gets tangled in CPAP tubing. Correcting sleep-disordered breathing often calms down active sleepers. With sleep apnea, the body has not decide between breathing (staying alive) vs sleeping (getting rest) - breathing wins every time. Restlessness and frequent awakenings occur with undertreated BAR
[2023-11-22 20:14] LABS: Glucose Point of Care 229 mg/dl (65-105)
[2023-11-22] MEDS: traZODone HCL 50 MG TABLET 100 MG PO (21:08)
[2023-11-22] MEDS: INSULIN ASPART (*BKC) 100 UNITS/ML SUB-Q (21:08)
[2023-11-23] VITALS (15 sets, daily range): BP systolic 134–151; BP diastolic 77–85; PULSE 68–98; RESP 16–21; TEMP 36.6–36.7; O2SAT 92–99
[2023-11-23] MEDS: IPRATROPIUM 0.5 MG/ALBUTEROL SULFATE 2.5 MG AMPUL.NEB 3 ML INHALATION ×3 (01:13→13:36)
[2023-11-23 05:05] LABS: Hematocrit 45.9 % (42.0-52.0); Hemoglobin 14.2 g/dL (14.0-18.0); Mean Corpuscular HGB Conc 30.9 g/dl (32-36); Mean Corpuscular Hemoglobin 27.5 pg (26-34); Mean Corpuscular Volume 88.8 fl (80-100); Mean Platelet Volume 11.1 fl (7.4-10.4); Platelet Count Result 196 k/mm3 (150-375); Red Blood Count 5.17 M/mm3 (4.6-6.20); Red Cell Distribution Width 14.1 % (11.5-14.5); White Blood Count 13.3 K/mm3 (4.5-10.0)
[2023-11-23 05:20] LABS: Anion Gap 0 mmol/L (4-12); Blood Urea Nitrogen 37 mg/dL (9-20); Calcium 10.2 mg/dL (8.4-10.2); Carbon Dioxide 37 mmol/L (22-30); Chloride 93 mmol/L (98-107); Estimated CRCL calculation 86 ml/min; Estimated Glomerular Filt Rate > 60; Glucose 161 mg/dL (65-110); Potassium 4.7 mmol/L (3.4-5.0); Sodium 130 mmol/L (137-145)
[2023-11-23 08:03] LABS: Glucose Point of Care 150 mg/dl (65-105)
[2023-11-23] MEDS: FLUTICASONE/UMECLIDIN/VILANTER 100-62.5-25 MCG ELLIPTA 1 PUFF INHALATION (09:01)
[2023-11-23] MEDS: dilTIAZem HCL CD 240 MG CAP.24HR PO (09:32)
[2023-11-23] MEDS: predniSONE 10 MG TABLET 40 MG PO (09:32)
[2023-11-23] MEDS: APIXABAN 5 MG TABLET PO (09:32)
[2023-11-23] MEDS: lisinopriL 5 MG TABLET PO (09:32)
[2023-11-23 11:21] LABS: Glucose Point of Care 141 mg/dl (65-105)
--- NOTE | 2023-11-23 14:11 | PC.NURSE ---
On 11/23/23, the student, [Eloy Meyer ], provided care and completed [facility] documentation on this patient. I have reviewed the student's documentation and agree with the findings.
--- NOTE | 2023-11-23 14:43 | HOMEO2EVAL ---
Evaluation was performed at [facility] Home Oxygen Evaluation RC: Home Oxygen (O2) Evaluation Start: 11/23/23 08:34 Freq: ONCE Status: Active Protocol: RPE Activity Type Activity Date Activity User E-sign Co-sign Detail Recorded Client Recorded Date Recorded By Document 11/23/23 14:00 [email or web address] [email or web address] 11/23/23 14:42 JORJE Document 11/23/23 14:05 [email or web address] 11/23/23 14:42 JORJE Document 11/23/23 14:15 [email or web address] [email or web address] 11/23/23 14:42 JORJE 11/23/23 11/23/23 11/23/23 14:00 14:05 14:15 Home O2 Evaluation [Oxygen] -Test Phase Resting Exercise Resting -Oxygen Delivery Room Air Room Air Room Air [Pulse Oximetry] -Pulse Oximetry (90-100 %) 95 92 95 [Pulse Rate] -Pulse Rate (60-100 beats/min) 83 98 82 [Charges] -Evaluation Charges O2 Evaluation by Pulmonary
--- NOTE | 2023-11-23 14:55 | PCRCNOTE ---
HOME O2 EVAL COMPLETE, NO REQUIREMENTS
--- NOTE | 2023-11-23 15:30 | PM.DS ---
DS: Admitting Diagnosis Discharge Date 11/23/23 Admitting Diagnosis sepsis, altered mental status, acute hypercapnic respiratory failure, pneumonia DS: Discharge Diagnosis Discharge Diagnosis (1) Atrial fibrillation with RVR: Code(s): I48.91 - Unspecified atrial fibrillation Status: Acute (2) AAA (abdominal aortic aneurysm) without rupture: Code(s): I71.40 - Abdominal aortic aneurysm, without rupture, unspecified Status: Acute (3) Congestive heart failure: Code(s): I50.9 - Heart failure, unspecified Status: Acute (4) Respiratory failure with hypoxia and hypercapnia: Code(s): J96.91 - Respiratory failure, unspecified with hypoxia; J96.92 - Respiratory failure, unspecified with hypercapnia Status: Acute (5) Acute metabolic encephalopathy: Code(s): G93.41 - Metabolic encephalopathy Status: Acute (6) Sepsis: Code(s): A41.9 - Sepsis, unspecified organism Status: Acute (7) Pneumonia: Code(s): J18.9 - Pneumonia, unspecified organism Status: Acute (8) Altered mental status: Code(s): R41.82 - Altered mental status, unspecified Status: Acute (9) HTN (hypertension): Code(s): I10 - Essential (primary) hypertension Status: Acute (10) Acute hypercapnic respiratory failure: Code(s): J96.02 - Acute respiratory failure with hypercapnia Status: Acute (11) Asthma exacerbation in COPD: Code(s): J44.1 - Chronic obstructive pulmonary disease with (acute) exacerbation; J45.901 - Unspecified asthma with (acute) exacerbation Status: Acute Plan # acute on chronic hypercapnic and hypoxic respiratory failure # COPD # community-acquired pneumonia - longstanding COPD 41 pack-year history - CT scan concerning for bullous emphysema - patient having altered mental status from pCO2 greater than 100, he has decreased down to 60 with his current settings, no AVAPS at night - patient may be having a COPD exacerbation, solu-medrol to prednisone taper - pulmonology ordered AVAPS for patient, starting trelegy and continuing predisone taper for discharge - acute encephalopathy may be secondary to hypercapnia which appears to have resolved -?antibiotic started on vanc, cefepime,?completed a course of Rocephin and Levaquin, no antibiotics needed on discharge - PT and OT consulted for debility: recs for home health # AFib with RVR - patient AFib likely secondary to pneumonia - Cardiology consulted: recs for diltiazem and lisinopril, AC with eliquis -?diltiazem 240mg daily - Chads-2Vasc score 3, started Eliquis # Chronic conditions- will restart home meds soon -BPH:? Flomax -COPD: p.r.n. albuterol -CAD: Zetia, aspirin -hypertension: coreg to diltiazem, decreased lisinopril, stopped amlodipine - type 2 diabetes:? Hemoglobin A1c 6.2, sliding scale insulin, home metformin, Accu-Cheks a.c. HS, hypoglycemia protocol, A1c 6.1 - infrarenal aortic aneurysm:? Will need outpatient surgery consult Diet:??diabetic diet, passed swallow study DVT prophylaxis:? on Eliquis Code status:?DNR/DNI Disposition:?home health DS: Summary Hospital Course Reason for hospitalization: sepsis, hypercapnic respiratory failure Hospital Course: Patient is a 68-year-old with past medical history COPD, CAD, history of RI, essential hypertension hyperlipidemia obesity psoriasis who presents to ED complaints dyspnea, weakness, lethargy. Patient was found to sepsis acute hypercapnic respiratory failure. PT continue supplemental oxygen per which. Patient was admitted on 2023 after falling to the ground at 10:00 p.m. the night before. Pulmonology is following patient and started patient BiPAP with recommendation for AVAPS. for COPD exacerbation he was treated with steroids and nebs. Will be discharged with Trelegy and prednisone taper. AVAPS is being arranged outpatient pulmonology clinic [facility]. pulmonology also recommended using trazodone to
[2023-11-24 04:35] LABS: Legionella pneumophila Ag Ur Not Detected (Not Detected)
== END 2023-11-23 16:17 | disposition home health service (06) | DRG 871 ==
LOC: ANHED 14:25 → ANHIMU 14:35 → ANHICU 16:48 → ANHIMU 11-19 20:28
PROVIDERS: Internal Medicine; Internal Medicine Pulmonary Disease; Student in an Organized Health Care Education/Training Program; Admitting Provider Hospitalist; Emergency Provider Emergency Medicine; PCP Physician Assistant; Visit Provider Student in an Organized Health Care Education/Training Program
DX: A41.9 Sepsis, unspecified organism (principal); J18.9 Pneumonia, unspecified organism; J96.21 Acute and chronic respiratory failure with hypoxia; J96.22 Acute and chronic respiratory failure with hypercapnia; G93.49 Other encephalopathy; I48.92 Unspecified atrial flutter; J43.8 Other emphysema; E66.01 Morbid (severe) obesity due to excess calories; E11.9 Type 2 diabetes mellitus without complications; E78.5 Hyperlipidemia, unspecified; F17.210 Nicotine dependence, cigarettes, uncomplicated; G47.33 Obstructive sleep apnea (adult) (pediatric); I11.0 Hypertensive heart disease with heart failure; I50.9 Heart failure, unspecified; I48.91 Unspecified atrial fibrillation; I25.10 Atherosclerotic heart disease of native coronary artery without angina pectoris; I71.43 Infrarenal abdominal aortic aneurysm, without rupture; I25.2 Old myocardial infarction; L40.9 Psoriasis, unspecified; N40.0 Benign prostatic hyperplasia without lower urinary tract symptoms; R44.1 Visual hallucinations; W19.XXXA Unspecified fall, initial encounter; Z66 Do not resuscitate; Z99.81 Dependence on supplemental oxygen; Z79.82 Long term (current) use of aspirin; Z79.84 Long term (current) use of oral hypoglycemic drugs; Z96.653 Presence of artificial knee joint, bilateral; Z20.822 Contact with and (suspected) exposure to COVID-19; Z68.35 Body mass index [BMI] 35.0-35.9, adult
CPT/HCPCS: 36415; 36600; 70450; 71045; 71250; 74176; 80048; 80053; 80202; 80307; 81001; 82375; 82550; 82565; 82805; 82948; 83036; 83050; 83605; 83735; 83880; 84443; 84484; 85025; 85027; 86140; 86738; 87040; 87070; 87205; 87449; 87633; 87637; 87641; 87899; 92507; 92610; 92611; 93005; 94002; 94003; 94618; 94640; 96365; 96366; 96367; 96375; 96376; 97110; 97116; 97161; 97166; 99285; A9270; C8929; G0378; J0360; J0692; J0696; J1650; J1815; J1940; J1956; J2060; J2405; J2919; J3370; J7120; J7512; Q9957

== ENCOUNTER 2025-04-15 10:49 | Outpatient (CLI) | payer MEDICARE, SELFPAY ==
[2025-04-15 11:25] LABS: Hematocrit 46.9 % (42.0-52.0); Hemoglobin 14.4 g/dL (14.0-18.0); Immature Granulocyte Percent A 0.3 % (0-0.5); Lymphocytes Absolute Auto 1.31 K/mm3 (0.9-3.2); Mean Corpuscular HGB Conc 30.7 g/dl (32-36); Mean Corpuscular Hemoglobin 26.9 pg (26-34); Mean Corpuscular Volume 87.5 fl (80-100); Nucleated Red Blood Cells Absolute Auto 0.000 K/mm3 (0.0-0.012); Nucleated Red Blood Cells Perc 0.0 % (0.0-0.2); Platelet Count Result 172 k/mm3 (150-375); Red Blood Count 5.36 M/mm3 (4.6-6.20); White Blood Count 7.9 K/mm3 (4.5-10.0)
--- OUTSIDE RECORDS SUMMARY | 2025-04-15 11:26 | XMS_ITS | Clinical Summary ---
Author Organization [facility] Address [address] [place] [address] Care Team Providers Care Roving Teller Name Role Phone Osmani Willingham MD Primary Care Provider Allergies Active Allergy Reactions Criticality Noted Date Comments Fyplomr-Xgu-Rsp Reductase Inhibitors Other (See comments) Low 12/12/2023 [address]'t walk Medications Eliquis 5 mg tablet Take 1 tablet (5 mg total) by mouth every 12 (twelve) hours 4 Active OneTouch Verio test strips strip USE TO CHECK BLOOD SUGAR ONCE DAILY 4 Active OneTouch Verio Reflect Meter misc USE TO CHECK BLOOD SUGAR ONCE DAILY 4 Active carvediloL (COREG) 25 mg tablet Take 1 tablet (25 mg total) by mouth 2 (two) times a day 4 Active dilTIAZem XR 240 mg 24 hr capsule Take 1 capsule (240 mg total) by mouth daily 4 Active ezetimibe (ZETIA) 10 mg tablet Take 1 tablet (10 mg total) by mouth daily 4 Active lisinopriL (PRINIVIL,ZESTRI L) 10 mg tablet Take 1 tablet (10 mg total) by mouth daily 4 Active metFORMIN XR (GLUCOPHAGE XR) 500 mg 24 hr tablet Take 1 tablet (500 mg total) by mouth 2 (two) times a day 4 Active aspirin 325 mg tablet Take 1 tablet (325 mg total) by mouth daily 3 Active amLODIPine (NORVASC) 5 mg tablet Take 1 tablet (5 mg total) by mouth daily Active albuterol HFA (PROVENTIL HFA,VENTOLIN HFA,PROAIR HFA) 90 mcg/actuation inhalerIndicatio ns:Chronic Obstructive Pulmonary Disease Inhale 2 puffs every 4 (four) hours as needed for shortness of breath or wheezing 1 each 11 5 Active sacubitriL-valsa rtan (ENTRESTO) 24-26 mg tabletIndication s:chronic heart failure Take 1 tablet by mouth 2 (two) times a day Active sacubitriL-valsa rtan (Entresto) 24-26 mg tablet Take 1 tablet by mouth 2 (two) times a day 4 Active Active Problems Problem Noted Date Diagnosed Date Pulmonary nodule 07/10/2024 Assessment & Plan (07/10/2024 1:42 PM FLOOR SANDER): The nodule to the left lower lobe seems more prominent than prior imaging I have recommended [address] follow-up He declines and is emphatic that he would not undergo any type of treatment if this were to be malignancy Chronic respiratory failure with hypoxia and hyp ercapnia 03/05/2024 Assessment & Plan (07/10/2024 1:40 PM FLOOR SANDER): He has returned his noninvasive ventilator We have again discussed the use of noninvasive therapy to assist with oxygen exchange and he continues to decline use. Assessment & Plan (03/05/2024 12:56 PM CDT): He has returned his noninvasive ventilator We have had discussion regarding the use and benefit in hypercapnia He understands and continues to decline Centrilobular emphysema 03/05/2024 Assessment & Plan (07/10/2024 1:39 PM FLOOR SANDER): Maintenance inhaled therapy has been cost prohibitive, he has buildup patient assistance forms and spoken with his insurance company. He has not been on maintenance therapy for the last 2 months and reports he has done well Two weeks of samples to patient today for emergency use Albuterol as needed only, he was aware of indications for use We provided him with the patient assistance forms to follow Albuterol as needed only, discussed indications for use He was aware of signs and symptoms that would require earlier evaluation or change to his plan of care Assessment & Plan (03/05/2024 12:52 PM CDT): In the past maintenance inhaled therapy has been cost prohibitive He has done well on Trelegy Ellipta 100 Two weeks of samples to patient today, instructed on use and technique We provided him with the patient assistance forms to follow If this continues to be unaffordable have to investigate additional options in combination therapy Albuterol as needed only, discussed indications for use Obstructive sleep apnea 03/05/2024 Assessment & Plan (03/05/2024 12:54 PM CDT): Intolerant to CPAP and AVAPS We have discussed the risks of uncorrected sleep apnea Cigarette nicotine dependence without complicati on 03/05/2024 Assessment & Plan (07/10/2024 1:41 PM FLOOR SANDER): - Smoking cessation counseling and techniques reviewed at length - Avoid triggers and use distraction techniques - Participate in support groups - Information given regarding [place] [employer] Quit line: 7-526-AKTQ-YES for free services - 4 minutes spent discussing cessation I have encouraged him to use nicotine replacement therapy to cut down if not completely quit He has a residual pulmonary nodule that I believe would require closer follow-up with imaging surveillance Understands the risks and declines repeat CT imaging in 6 months however he is willing to commit to annual lung cancer screening. Assessment & Plan (03/05/2024 12:54 PM CDT): - Smoking cessation counseling and techniques reviewed at length - Avoid triggers and use distraction techniques - Participate in support groups - Information given regarding [place] [employer] Quit line: 7-815-HXFC-YES for free services - 4 minutes spent discussing cessation Community acquired pneumonia of right upper lobe of lung 03/05/2024 Assessment & Plan (03/05/2024 12:55 PM CDT): Hospitalized and treated with IV antibiotics in November of 2023 Also with consolidations to bilateral bases Recheck CT chest 6 months from prior, due May 17, 2024 Medical History Medical History Date Comments COPD (chronic obstructive pulmonary disease) Hypertension Diabetes mellitus (HCC) Cigarette nicotine dependence without complicati on 03/05/2024 Community acquired pneumonia of right upper lobe of lung 03/05/2024 Pulmonary nodule 07/10/2024 Family History Medical History Relation Name Comments Diabetes Maternal Grandmother Emphysema Maternal Grandmother Hypertension Maternal Grandmother Cancer Mother Diabetes Mother Hypertension Mother Relation Name Status Comments Maternal Grandmother Mother Social History Tobacco Use Types Packs/Day Years Used Date Smoking Tobacco: Every Day Cigarettes 1.7 39.3 Started: 1966; Last attempted to quit: 2004 Tobacco Cessation:Ready to Q uit: Not Asked; Counseling Given: Not Answered AUDIT-C Answer Date Recorded Q1: How often do you have a drink containing alc ohol? 2-3 times a week 07/10/2024 Average Number of Drinks Not on file 024 Frequency of Binge Drinking Not on file 06/15 Sex and Gender Information Value Date Recorded Sex Assigned at Not on file Legal Sex Male 9:05 AM FLOOR SANDER Gender Identity Not on file Sexual Orientation Not on file Obstetrics History Last Filed Vital Signs Vital Sign Reading Time Taken Comments Blood Pressure 134/77 01/07/2025 11:07 AM CDT Pulse 82 01/07/2025 11:07 AM CDT Temperature 36.4 C (97.5 F) 01/07/2025 11:07 AM CDT Respiratory Rate 18 01/07/2025 11:0 7 AM CDT Oxygen Saturation 95% 01/07/2025 11: 07 AM CDT Inhaled Oxygen Concentration - - Weight 116.4 kg (256 lb 9.6 oz) 025 11:07 AM CDT Height 175.3 cm (5' 9) 01/07/2025 11:0 7 AM CDT Body Mass Index 37.89 01/07/2025 11:07 AM CDT Plan of Treatment Health Maintenance Due Date Last Done Comments Colon Cancer Screening-Colonoscopy 1953 Depression Screening 1953 Fall Risk Assessment 1955 Hepatitis C Screening 1955 DTaP/Tdap/Td Vaccine (1 - Tdap) 1964 Hepatitis B Screening 1971 Lung Cancer Screening 2003 Pneumococcal vaccine 65+ (2 of 2 - PPSV23, PCV20, or PCV21) 08/06/2015 06/11/2015 Zoster Vaccine (2 of 3) 12/12/2016 10/17/2016 Abdominal Aortic Aneurysm (A AA) Screen 2018 Well Visit 65+ 2018 Covid-19 Vaccine (5 2024-2 6 season) 2025 05/29/2023, 07/23/2021, 11/01/2020, Additional history exists Influenza Vaccine (#1) 2025 , 07/23/2021, 07/03/2020, Additional history exists Insurance [facility] MEDIC[facility] ADVANTAGE Care Teams Roving Teller Relationship Specialty Start Date End Date Osmani Willingham MD [facility] [place] [address] PCP - General Family Medicine 05/10/24
--- OUTSIDE RECORDS SUMMARY | 2025-04-15 11:26 | XMS_ITS | Clinical Summary ---
Author Organization [facility] Address [address] [place] [address] Care Team Providers Care Timber Deadener Name Role Phone Quinton Macias MD Primary Care Provider [phone] Source Comments [facility],non-owned Affiliates and Associated Physician Practices is amultiple site organization consisting of ambulatory clinics and hospital sitesin [place], [place], [place] and [place]. This disclosure is being madepursuant to the Care Everywhere program and may not contain all information available regarding this patient. Last updated 18.[facility] Allergies No known active allergies Medications * Be aware that medications may not be up to date on this document. Alwaysverify current medications with the patient. lisinopril-hydr ochlorothiazide (PRINZIDE; ZESTORETIC) 20-12.5 MG tablet Take 1 tablet by mouth once daily. Active aspirin (ASPIRIN) 81 MG chew tablet Take 1 tablet by mouth once daily. 03/28/2014 Active ticagrelor (BRILINTA) 90 MG tablet Take 1 tablet by mouth 2 times daily. 60 tablet 0 03/28/2014 Active rosuvastatin (CRESTOR) 5 MG tablet Take 1 tablet by mouth every 7 days. 4 tablet 0 03/28/2014 Active lisinopril (PRINIVIL;ZESTR [place]) 5 MG tablet Take 1 tablet by mouth once daily. 30 tablet 3 03/28/2014 Active carvedilol CR 24hr (COREG CR) 10 MG capsule Take 1 capsule by mouth daily with breakfast. 30 capsule 3 03/28/2014 Active Active Problems Problem Noted Date Diagnosed Date Chest pain 02/10/2010 Social History Tobacco Use Types Packs/Day Years Used Date Smoking Tobacco: Former Cigarettes Q uit: 09/14/2009 Comments:smoked for 45 years . 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 Gender Identity Not on file Sexual Orientation Not on file Last Filed Vital Signs Vital Sign Reading Time Taken Comments Blood Pressure 133/83 03/28/2014 7:19 AM CDT Pulse 77 03/28/2014 7:19 AM CDT Temperature 36.7 C (98.1 F) 03/28/2014 7:19 AM CDT Respiratory Rate 16 03/28/2014 7:19 AM CDT Oxygen Saturation 97% 03/28/2014 7:19 AM CDT Inhaled Oxygen Concentration - - Weight 112 kg (247 lb) 03/28/2014 12:19 AM CDT Height 180.3 cm (5' 11) 03/26/2014 11:00 PM CDT Body Mass Index 34.45 03/26/2014 11:00 PM CDT Plan of Treatment Health Maintenance Due Date Last Done Comments COLOGUARD (AGES 45-75) - COL ON CA SCREENING 1953 COLON MONITORING 1953 COLONOSCOPY - COLON CA SCREENING 1953 CT COLONOGRAPHY - COLON CA SCREENING 1953 Colorectal Cancer Screening 1953 FIT - COLON CA SCREENING 1953 FLEX SIG - COLON CA SCREENING 1953 HEPATITIS C SCREENING 09/25/1971 DTAP/TDAP/TD VACCINES (1 - Tdap) 1972 PNEUMOCOCCAL VACCINE 50+ (1 of 1 - PCV) 2003 ZOSTER VACCINE (1 of 2) 2003 AAA SCREENING 2018 COVID-19 VACCINE (1 - 2023-2 5 season) 2024 DEPRESSION SCREENING 08/14/2024 INFLUENZA VACCINE (#1) 2025 Respiratory Syncytial Virus (RSV) Vaccine Pt: or over 60 yrs (1 - 1-dose 75+ series) 2028 HEPATITIS B VACCINE Aged Out No longe r eligible based on patient's age to complete this topic HIB VACCINE Aged Out No longer eligi ble based on patient's age to complete this topic HPV VACCINE Aged Out No longer eligi ble based on patient's age to complete this topic MENINGOCOCCAL (Group B) VACC INE SHARED DECISION-MAKING Aged Out No longer eligibl e based on patient's age to complete this topic MENINGOCOCCAL GROUPS A/C/Y/W VACCINE Aged Out No longer eligible b ased on patient's age to complete this topic Insurance [employer] Advance Directives * Full Code (Latest Code Status on File) Date Activated Date Inactivated Comments 03/26/2014 10:28 PM 03/28/2014 1:39 PM * Full Code Date Activated Date Inactivated Comments 02/10/2010 3:59 PM 02/13/2010 11:09 PM Care Teams Timber Deadener Relationship Specialty Start Date End Date Quinton Macias MD [address] [place] [address] [address] [place] [address] PCP - General Internal Medicine 03/27/14
[2025-04-15 11:33] LABS: Hemoglobin A1C 6.0 % (<5.7)
[2025-04-15 11:46] LABS: MALB Creatinine Ratio 361.8 mg/g (0-30)
[2025-04-15 11:53] LABS: Alanine Aminotransferase 13 U/L (6-50); Albumin Level 3.7 g/dL (3.5-5.1); Alkaline Phosphatase 92 U/L (38-126); Anion Gap 7 mmol/L (4-12); Aspartate Amino Transferase 23 U/L (17-59); Bilirubin,Total 0.5 mg/dL (0.2-1.3); Blood Urea Nitrogen 12 mg/dL (9-20); Calcium 9.4 mg/dL (8.4-10.2); Carbon Dioxide 28 mmol/L (22-30); Chloride 102 mmol/L (98-107); Cholesterol 157 mg/dL (0-200); Estimated Glomerular Filt Rate > 60; Glucose 120 mg/dL (65-110); HDL Direct 47 mg/dL; Potassium 3.9 mmol/L (3.4-5.0); Sodium 137 mmol/L (137-145); Total Protein 7.0 g/dL (6.3-8.2); Triglycerides 96 mg/dL (<150)
[2025-04-15 12:28] LABS: Prostate Specific Antigen 0.9 ng/mL (< OR = 4.0)
[2025-04-15 12:47] LABS: Vitamin B12 916.0 pg/mL (239-931)
== END 2025-04-15 10:50 | disposition home or self-care (01) ==
PROVIDERS: PCP Internal Medicine; Visit Provider Internal Medicine
DX: Z12.5 Encounter for screening for malignant neoplasm of prostate (principal); E11.9 Type 2 diabetes mellitus without complications; I10 Essential (primary) hypertension; E78.5 Hyperlipidemia, unspecified; Z51.81 Encounter for therapeutic drug level monitoring; Z79.899 Other long term (current) drug therapy
CPT/HCPCS: 36415; 80053; 80061; 82043; 82607; 83036; 84153; 85025; G0103